=== PATIENT | male | born 1960 | race Caucasian/White ===

== ENCOUNTER → 2019-03-19 15:26 | Outpatient (CLI) | payer OTHER, SELFPAY ==
[2019-03-19 16:58] LABS: PSA,Total- Diagnostic 3.09 ng/mL (0.0-4.0)
== END ==
PROVIDERS: Family Provider Family Medicine; PCP Family Medicine; Referring Provider Nurse Practitioner Adult Health; Visit Provider Nurse Practitioner Adult Health
DX: R97.20 Elevated prostate specific antigen [PSA] (principal)
CPT/HCPCS: 36415; 84153

== ENCOUNTER 2021-11-08 08:30 | Outpatient (CLI) | payer OTHER, SELFPAY ==
--- NOTE | 2021-11-08 | IMM_PTH ---
PATIENT: TOM GELLER LOC: [facility] U#:[id number] AGE/SX: 61/M ROOM: RE11/08/[address]: Dr. Brennan Leonardo MD : 1960 BED: DIS: 11/08/2021 SPEC #: [id number] RECD: 11/10/21 14:13 STATUS: VIOLA REQ #: [id number] ZEE: 11/08/21 00:[address]: Brennan Leonardo DEPT: IMMUNOHISTOCHEMISTRY RECD BY: Cindi Anand ENTERED: 11/10/21 14:17 SP TYPE: IMMUNO OTHR DR: Dr. Pedro Doe MD Tissues: A - PROSTATE RIGHT B - PROSTATE RIGHT D - PROSTATE LEFT E - PROSTATE LEFT F - PROSTATE LEFT Procedures: 34BE12 (add) P40 (add) 34BE12 (initial) PHYSICIAN & INSTITUTION [place] [phone] SPECIMEN INFORMATION: Tissue Source: A - Right apex, B - Right mid, D - Left apex, E - Left mid, F - Left base Clinical Info: Elevated PSA Specimen Number: [id number] A, B, D-F CPT code: 88359, 25723 x9 METHODOLOGY: Deparaffinized sections of prefer/formalin-fixed tissue or PAP/DQ stained slides are incubated with monoclonal/polyclonal antibodies/oligonucleotide probes. Localization is made via biotin free immunoperoxidase method. Appropriate controls are performed and reacted as expected. Results on target cell population are indicated in the following table: RESULTS: ANTIBODY / CLONE RESULT Block A P40 (BC28) negative 34BE12 (34BE12) negative Block B P40 (BC28) negative 34BE12 (34BE12) negative Block D P40 (BC28) negative 34BE12 (34BE12) negative Block E P40 (BC28) negative * 34BE12 (34BE12) negative * Block F P40 (BC28) negative * 34BE12 (34BE12) negative * *?Positive in area of high-grade prostatic intraepithelial neoplasia (HGPIN). These tests were developed and their performance characteristics determined by [facility]. They may not have been cleared or approved by the U.S. Food and Drug Administration. The FDA has determined that such clearance or approval is not necessary. The above immunohistochemical/dualISH markers are ordered and reviewed by the Pathologist. INTERPRETATION: A. Right prostate, apex, core biopsy: Adenocarcinoma. B. Right prostate, mid, core biopsy: Adenocarcinoma. D. Left prostate, apex, core biopsy: Adenocarcinoma. E. Left prostate, mid, core biopsy: Adenocarcinoma. High-grade prostatic intraepithelial neoplasia (HGPIN). F. Left prostate, base, core biopsy: Adenocarcinoma. High-grade prostatic intraepithelial neoplasia (HGPIN). SJ:kesha 11/11/2021
--- NOTE | 2021-11-08 08:00 | PROSBIL_PTH ---
PATIENT: TOM GELLER LOC: [facility] U#:[id number] AGE/SX: 61/M ROOM: RE11/08/[address]: Dr. Brennan Leonardo MD : 1960 BED: DIS: 11/08/2021 SPEC #: [id number] RECD: 11/08/21 17:19 STATUS: VIOLA SIDDIQUI #: [id number] ZEE: 11/08/21 08:[address]: Brennan Leonardo DEPT: SURGICAL PATHOLOGY RECD BY: Radha Westfall ENTERED: 11/09/21 07:55 SP TYPE: PROST BX CARLEY DR: Dr. Pedro Doe MD Tissues: A - PROSTATE RIGHT B - PROSTATE RIGHT C - PROSTATE RIGHT D - PROSTATE LEFT E - PROSTATE LEFT F - PROSTATE LEFT Procedures: PROSTATE BX HEADER OPERATION: Prostate biopsy PRE-OP DIAGNOSIS: Elevated PSA TISSUE SUBMITTED: A - Right apex, B - Right mid, C - Right base, D - Left apex, E - Left mid, F - Left base MICROSCOPIC DIAGNOSIS A. Right prostate, apex, core biopsy: Prostatic adenocarcinoma. Moroni grade: 3+3=6 Number of cores involved: 1/1 Proportion of tissue involved: <5% Perineural invasion: Not identified. Greatest tumor length: <0.1 cm See comment. B. Right prostate, mid, core biopsy: Prostatic adenocarcinoma. Moroni grade: 3+3=6 Number of cores involved: 1/2 Proportion of tissue involved: 5-10% Perineural invasion: Not identified. Greatest tumor length: 2 mm See comment. C. Right prostate, base, core biopsy: Prostatic tissue, negative for malignancy. D. Left prostate, apex, core biopsy: Prostatic adenocarcinoma. Hamilton grade: 3+3=6 Number of cores involved: 1/1 Proportion of tissue involved: 10% Perineural invasion: Not identified. Greatest tumor length: 2 mm See comment. E. Left prostate, mid, core biopsy: Prostatic adenocarcinoma. Hamilton grade: 3+3=6 Number of cores involved: 1/1 Proportion of tissue involved: <5% Perineural invasion: Not identified. Greatest tumor length: <0.1 cm Focal high-grade prostatic intraepithelial neoplasia (HGPIN). See comment. F. Left prostate, base, core biopsy: ? Prostatic adenocarcinoma. Moroni grade: 3+3=6 Number of cores involved: 1/2 Proportion of tissue involved: <5% Perineural invasion: Not identified. Greatest tumor length: <0.1 cm Focal high-grade prostatic intraepithelial neoplasia (HGPIN). See comment. SJ:kesha 11/10/2021 COMMENT A, B, D-F - Immunohistochemistry ([id number]) supports the above diagnosis. Case has been reviewed in consultation with Dr. Alvares who concurs with the above diagnosis. IDC:AM MICROSCOPIC DESCRIPTION Slides are reviewed. GROSS DESCRIPTION A - Received is one container designated prostate, right apex. The specimen consists of one elongated fragment of light keen-white soft tissue measuring 1 cm in length and 0.1 cm in diameter. The specimen is totally submitted in one cassette. B - Received is one container designated prostate, right mid. The specimen consists of two elongated fragments of light keen-white soft tissue each measuring 1.5 cm in length and 0.1 cm in diameter. The specimen is totally submitted in one cassette. C - Received is one container designated prostate, right base. The specimen consists of two elongated fragments of light keen-white soft tissue each measuring 1 cm in length and 0.1 cm in diameter. The specimen is totally submitted in one cassette. D - Received is one container designated prostate, left apex. The specimen consists of one elongated fragment of light keen-white soft tissue measuring 1 cm in length and 0.1 cm in diameter. The specimen is totally submitted in one cassette. E - Received is one container designated prostate, left mid. The specimen consists of one elongated fragment of light keen-white soft tissue measuring 1 cm in length and 0.1 cm in diameter. The specimen is totally submitted in one cassette. F - Received is one container designated prostate, left base. The specimen consists of two elongated fragments of light keen-white soft tissue each measuring 1 cm in length and 0.1 cm in diameter. The specimen is totally submitted in one cassette. / AM:kesha 11/09/21 TC:0 [facility]: 46907 x6 ADDENDUM ADDENDUM ADDENDUM ADDENDUM ADDENDUM ADDENDUM ADDENDUM ADDENDUM 12/13/2021 08:38 ADDENDUM 12/13/2021 08:38 ADDENDUM 12/13/2021 08:38 ADDENDUM 12/13/2021 08:38 ADDENDUM 12/13/2021 08:38 An order for Oncotype testing was received from Dr. Leonardo. This necessitated case review, block and slide selection by pathologist at [facility]. Genomic Prostate Score = 24 Results of the complete Oncotype testing (LIFX report) are viewable in EMR under: Reports - Pathology - Lab Pathology Report, Scanned.
== END 2021-11-08 23:59 | disposition short-term general hospital (02) ==
LOC: LABSPEC 11-09 07:32
PROVIDERS: PCP Family Medicine; Referring Provider Urology; Visit Provider Urology
DX: R97.20 Elevated prostate specific antigen [PSA] (principal)
CPT/HCPCS: 88305; 88341; 88342; G0416

== ENCOUNTER → 2022-05-23 | Outpatient (CLI) | payer OTHER, SELFPAY ==
[2022-05-23 09:41] LABS: PSA,Total- Diagnostic 5.57 ng/mL (0.0-4.0)
== END | disposition home or self-care (01) ==
LOC: LAB 08:03
PROVIDERS: PCP Family Medicine; Referring Provider Urology; Visit Provider Urology
DX: C61 Malignant neoplasm of prostate (principal)
CPT/HCPCS: 36415; 84153

== ENCOUNTER 2022-08-23 10:35 | Observation (INO) | payer OTHER, SELFPAY ==
--- NOTE | 2022-08-18 09:15 | EKG12_ITS ---
Test Reason : PRE-OP Blood Pressure : / mmHG Vent. Rate : 074 BPM Atrial Rate : 074 BPM P-R Int : 134 ms QRS Dur : 078 ms QT Int : 368 ms P-R-T Axes : 076 075 059 degrees QTc Int : 408 ms Normal sinus rhythm Septal infarct , age undetermined Abnormal ECG Confirmed by CIRA ARMSTRONG, MILA ([id number]), graphic editor NELSON HERNANDEZ ([id number]) on 08/21/2022 9:44:55 A M Referred By: Brennan Leonardo Confirmed By:MARLEY DENIS MD
[2022-08-18 10:31] LABS: Hematocrit 45.3 % (40-54); Hemoglobin 15.7 g/dL (13.0-16.5); Mean Corp Hgb Conc 34.7 g/dL (32-36); Mean Corpuscular Hgb 32.4 pg (27.0-32.0); Mean Corpuscular Volume 93.4 fL (80-94); Mean Platelet Vol. 8.8 fl (6.2-12.0); Platelet Count 321 K/mm3 (150-450); RBC Distribution Width CV 12.4 % (11.6-14.6); RBC Distribution Width SD 42.7 fl (35.1-43.9); Red Blood Count 4.85 M/mm3 (4.6-6.2)
[2022-08-18 10:50] LABS: Partial Thromboplast Time 26.1 Seconds (24.1-36.2)
[2022-08-18 11:26] LABS: AST(SGOT) 18 U/L (15-37); Alanine Aminotransfer ALT/SGPT 34 U/L (16-61); Albumin, Serum 3.8 g/dL (3.2-5.0); Alkaline Phosphatase 69 U/L (45-117); Anion Gap 5 (5-15); BUN 13 mg/dL (7-18); Bilirubin, Direct 0.16 mg/dL (0.00-0.30); Calcium,Total 9.2 mg/dL (8.5-10.1); Chloride 105 mmol/L (98-107); Creatinine, Serum 0.87 mg/dL (0.70-1.30); EST Glomerular Filtration Rate 95 mL/min (>60); Est Glom Filt Rate - Afr Amer 115 mL/min (>60); Globulin 3.5 g/dL (2.2-4.2); Glucose 88 mg/dL (74-106); Potassium 3.8 mmol/L (3.5-5.1); Protein, Total 7.3 g/dL (6.4-8.2); Sodium Level 139 mmol/L (136-145)
[2022-08-23] VITALS (12 sets, daily range): BP systolic 107–137; BP diastolic 62–82; PULSE 4–94; RESP 16–18; TEMP 35.8–37.2; O2SAT 95–100; BMI 23.1
--- NOTE | 2022-08-23 | PROST_PTH ---
PATIENT: TOM GELLER LOC: [facility] U#:[id number] AGE/SX: 62/M ROOM: [facility]305 RE08/23/[address]: Dr. Brennan Leonardo MD : 1960 BED: 1 DIS: 08/24/2022 SPEC #: [id number] RECD: 08/23/22 12:58 STATUS: VIOLA RESuki #: [id number] ZEE: 08/23/22 00:[address]: Brennan Leonardo DEPT: SURGICAL PATHOLOGY RECD BY: Yuniel Chiang ENTERED: 08/23/22 13:00 SP TYPE: PROSTATE OTHR DR: MD Dr. Pedro Burnette MD Tissues: A - Lymph node of pelvis, NOS B - Lymph node of pelvis, NOS C - Adipose tissue D - Prostate, NOS Procedures: Surgery Specimen Level IV Surgery Specimen Level V Surgery Specimen Level HEADER OPERATION: Laparoscopic robotic radical prostatectomy with nerve sparing PRE-OP DIAGNOSIS: Malignant neoplasm of prostate, elevated PSA TISSUE SUBMITTED: A - Left pelvic lymph node, B - Right pelvic lymph node, C - Fat over prostate, D - Prostate MICROSCOPIC DIAGNOSIS A. Left pelvic lymph node, regional lymphadenectomy: One out of one lymph node negative for carcinoma. B. Right pelvic lymph nodes, regional lymphadenectomy: Three out of three lymph nodes negative for carcinoma. C. Fat over prostate, biopsy: Negative for carcinoma. D. Prostate, radical prostatectomy: Adenocarcinoma. See cancer synoptic report below. AM:kesha 08/25/2022 COMMENT PROSTATE CANCER (RADICAL) SUMMARY: Procedure: Radical Prostatectomy Prostate Size: Weight: 30.2 gm Size: 3.5 x 3.5 x 3.2 cm Histologic Type: Adenocarcinoma Histologic Grade: 6 (3+3) Percent of Pattern 4: 0 Percent of Pattern 5: 0 Intraductal Carcinoma: Not identified Tumor Quantitation: 2.9 x 1.7 x 1.1 cm Extraprostatic Extension: Not identified Urinary Bladder Neck Invasion: Not identified Seminal Vesicle Invasion: Not identified Lymphvascular Invasion: Not identified Perineural Invasion: Present, frequent Margins: Distal urethral margin is positive for invasive carcinoma. Regional Lymph Nodes: Number of lymph nodes involved by carcinoma: 0 Total number of lymph nodes examined: 4 (see specimens A & B) Treatment Effect: Unknown Additional Pathologic Findings: Focal high-grade prostatic intraepithelial neoplasia (HGPIN). PATHOLOGIC STAGE: T2 N0 Mx The above summary is in compliance with [employer] (CAP) Cancer Protocols Checklist and [place] Joint Committee on Cancer (AJCC), Staging Manual, 8th Ed. Reference is made to the patient's previous prostate, needle core biopsies ([id number]) in which prostate adenocarcinoma, [place] grade 6, was identified. MICROSCOPIC DESCRIPTION Slides are reviewed. GROSS DESCRIPTION A - Received in fixative is one container labeled with the patient's name and designated left pelvic lymph node. The specimen consists of an irregular fragment of yellow fatty tissue measuring 1.6 x 1 x 0.3 cm. The specimen is totally submitted in one cassette. B - Received in fixative is one container labeled with the patient's name and designated right pelvic lymph node. The specimen consists of multiple irregular fragments of yellow-keen fatty tissue measuring in aggregate 2.5 x 2 x 0.5 cm. The specimen is totally submitted in one cassette. C - Received in fixative is one container labeled with the patient's name and designated fat over prostate. The specimen consists of an irregular fragment of yellow fatty tissue measuring 2.5 x 1.5 x 0.3 cm. The specimen is totally submitted in one cassette. D - Received in fixative is one container labeled with the patient's name and designated prostate. The specimen consists of a radical prostatectomy specimen consisting of prostate and bilateral seminal vesicles. The specimen weighs 30.2 gm. The prostate measures 3.5 cm transversely, 3.2 cm anterior-posteriorly and 3.5 cm craniocaudally. The specimen is differentially inked as follows: entire posterior surface - black, anterior surface - red, right prostate and right seminal vesicles - blue and left prostate and left seminal vesicles - green. The gland is serially sectioned (3-4 mm). No mass lesions are appreciated. Stem Lead Former sections are submitted as follows: 1 - distal urethral shaved margin, 2 - bladder shaved margin, 3 - seminal vesicles, 4 - most distal portion of prostate, 5-7 - apex, 811 - mid portion of prostate, 12-15 - basal portion of prostate. / AM:kesha 08/24/2022 TC:0 CPT: 35965 x2, 75193, 75299
[2022-08-23] MEDS: Lactated Ringers 1,000 ML 15 ML IV (06:18)
[2022-08-23] MEDS: Cefazolin 2 GM in 0.9% Normal Saline 100 ML IV (07:25)
[2022-08-23] MEDS: Lactated Ringers 1,000 ML 75 ML IV ×2 (10:35→21:40)
--- NOTE | 2022-08-23 10:36 | DCINST_ITS ---
Discharge Instructions Diet Discharge Diet: No restrictions, Light diet - advance as tolerated and Soft diet Activity Discharge Activity: May Not Drive and May Shower Dressing / Incision Catheter: Chapman to leg bag and Chapman to large bag Drain: [place] Follow Up Care Please Follow Up With: Brennan Leonardo MD When: 2 weeks Test Results: Test results from this visit will be discussed in further detail at your follow- up appointment, if applicable. Discharge Plan Admission Primary Reason for Your Visit: Radical prostatectomy Attending Provider: Brennan Leonardo Primary Care Provider: Pedro Doe Consulting Providers: Jack Cool Instructions Patient Instructions: Radical Prostatectomy Dc Discharge Orders/Prescriptions Prescriptions: New ciprofloxacin HCl [Cipro] 500 mg tablet 500 mg PO DAILY Qty: 14 0RF docusate sodium [Colace] 100 mg capsule 100 mg PO BID Qty: 20 0RF oxycodone-acetaminophen 5-325 mg tablet 1 tab PO Q6H PRN (Reason: pain) 7 Days Qty: 14 0RF Continued hyoscyamine sulfate 0.375 mg Capsule,Extended Release 12 Hr 0.375 mg PO BID losartan 100 mg Tablet 100 mg PO BID Referrals / Follow Up: Pedro Doe MD [Primary Care Provider] - Brennan Leonardo MD [Med Staff - Active Staff] - Disposition Disposition (needs filled in before D/C Order can be placed): Home, Self Care
--- NOTE | 2022-08-23 10:36 | PCM.HP.STD ---
HPI - General HPI Narrative TOM GELLER, is a 62 M who presents for radical prostatectomy for prostate cancer PFSH Medical History (Updated 08/23/22 @ 10:[address] Brennan Leonardo MD) Alcohol use Arthritis Cancer Heartburn History of echocardiogram History of IBS Hypertension Injury of head and neck Leg cramps Marijuana use Prostate disease Smoker Wears glasses Home Medications hyoscyamine sulfate 0.375 mg capsule,extended release 12 hr 0.375 mg PO BID 08/16/22 [History Last Taken Unknown] losartan 100 mg tablet 100 mg PO BID 08/16/22 [History Last Taken Unknown] ciprofloxacin HCl 500 mg tablet (Cipro) 500 mg PO DAILY #14 tabs 08/23/22 [Rx Last Taken Unknown] docusate sodium 100 mg capsule (Colace) 100 mg PO BID #20 caps 08/23/22 [Rx Last Taken Unknown] oxycodone-acetaminophen 5 mg-325 mg tablet 1 tab PO Q6H PRN pain 7 days #14 tabs 08/23/22 [Rx Last Taken Unknown] Allergy/AdvReac Type Severity Reaction Status Date / Time hydrochlorothiazide Allergy Rash Verified 08/23/22 06:07 lisinopril AdvReac Mild Other Verified 08/23/22 06:07 losartan potassium AdvReac Mild Other Verified 08/23/22 06:07 [From Anastacio] Surgical History (Updated 08/16/22 @ 09:20 by Carolina Collins) Hx of colonoscopy Hx of wisdom tooth extraction Social History Smoking Status: Current every day smoker tobacco type: cigarettes Vital Signs Vital Signs Vital Signs: 08/23/22 06:11 08/23/22 06:15 Temperature 97.3 F L Temperature Source Temporal Pulse Rate 69 Respiratory Rate 16 Respiratory Pattern Normal Blood Pressure 137/76 H Blood Pressure Mean 96 Blood Pressure Source Monitor Blood Pressure Position Semi-Fowlers Blood Pressure Location Right Arm Pulse Ox 98 Oxygen Delivery Method Room Air Weight Weight: 67 kg Body Mass Index (BMI) 23.1 Results Lab / Micro Data Result Diagrams: 08/18/22 09:38 08/18/22 09:38
--- NOTE | 2022-08-23 10:37 | PCM.OPRPT ---
Report of Operation Date of Procedure: 08/23/22 Pre-Operative Diagnosis: Prostate cancer Post-Operative Diagnosis: Same Surgery/Procedure Performed:: Laparoscopic robotic assisted radical prostatectomy with bilateral nerve sparing and pelvic lymph node dissection Description of Surgical Findings:: Patient presented to the hospital for treatment of his prostate cancer with radical prostatectomy. In the preoperative setting we discussed the options of management for his prostate cancer including active surveillance, radiation treatments, radioactive seeds, and radical robotic prostatectomy. We discussed the side effects of surgery including the potential to lose erections. We discussed the potential to have bladder control problems with stress incontinence which can be temporary or permanent. We discussed the risk of the surgery including the risk of general anesthetic, risk of bleeding, risk of infection, and risk of formation of hernia either incisional hernia or inguinal hernia. After long discussion with the patient the preoperative setting and also reviewed this in the preop area patient signed the consent form and we proceeded with a radical prostatectomy. Patient was taken back to the operating room he was identified, time out procedure was performed and he was placed supine on the table he underwent general anesthesia with intubation. The abdomen was shaved prepped and draped in usual sterile fashion as well as the penis and testicles. A 16 Barbadian catheter was placed into the bladder with clear return of urine. I then made an incision in the umbilicus and dissected down to the fascia advance a Veress needle into the peritoneal cavity and insufflated the peritoneal cavity with CO2 gas. I then placed a 12 mm trocar above the umbilicus. I then visualized the placement of the rest of the trochars, I placed a right arm robotic trocar, and air seal trocar, a suction port 5 mm trocar. And on the left side I placed 2 robotic arms. Once all the trochars were in placed the patient was put in steep Trendelenburg. And the robot was docked the arms were docked and then I placed the 0 degree camera through the robotic arm and also used a 30 degree camera during certain parts of the case. I used scissors in the right arm, prograsp in the third arm, and a bipolar in the second arm. Initial dissection was to free the sigmoid colon off the lateral wall this was done by meticulously dissecting off the peritoneum and the sigmoid colon off the left lateral wall. This then allowed the prograsp to retract the sigmoid colon out of the pelvis. I then went below the bladder and identified the vas deferens incised the peritoneum over the vas deferens and traced the vas deferens below the bladder to the prostate and identified the right and left vasa deferens. Below behind the vas deferens then the seminal vesicles were identified. I then dissected the seminal vesicle free using pinpoint electrocautery and then we identified the other seminal vesicle and then dissected this using pinpoint electrocautery I then elevated the vas deferens and several vesicles off the prostate and was able to sweep the Denonvilliers' fascia off the prostate posteriorly all the way up to the apex of the prostate. Working laterally I made sure I went as lateral as possible to sweep the Denonilliers' fascia off the posterior aspect of the prostate and worked my way back, I then transected the vas deferens and the left and right side the seminal vesicles were then dissected free. And then I pulled out of the pelvis. At this point the bladder was dropped creating the space of Retzius with the bladder on traction with the fourth arm. Using electrocautery I dissected in the anterior peritoneal fascia and then created the space of Retzius dissecting towards the prostate. The pelvic lymph node dissection was then performed both on the left and the right pelvic lymph nodes the nodes that were taken on the right side extended from the right iliac artery lateral pelvic sidewall up to the junction of the artery and the lymph nodes and down to the obturator nerve and then also below the scrap crane operator nerve all the lymph nodes were removed during to remove those lymph nodes we used clips and electrocautery to control small blood vessels and also the control lymphatic. I then went to the left side and again did an extensive lymph node dissection starting of the left iliac artery extending the left iliac vein on the lateral sidewall down to the obturator nerve and the left side beyond the scrap crane operator nerve down further behind it cleaning out all the lymphatic tissue all this tissue was sent off as a specimen we use clips and electrocautery during the dissection. At the end we cleaned out all the lymphatic tissue on the right pelvic wall and no lymphatic tissue in the left pelvic wall. The prostate was then cleaned of the fat over the prostate and the fourth arm was used to retract the bladder and place traction. I then identified the endopelvic fascia that was overlying the prostate on the right side I incised endopelvic fascia and wwept the levator muscles off the prostate all the way to the apex on the right side, I then worked my way anterior to the prostate then transected to the puboprostatic ligament and the underlying dorsal vein complex was not injured. I then went to the other side and identified the endopelvic fascia in the left side incised in a fashion the left side and swept the levator muscles off the prostate on the left side all the way up to the apex the puboprostatic ligament on the left side was then dissected and transected I then freed up the fascia overlying the dorsal vein complex. I then used the prograsp to encircled the dorsal vein complex with the prograsp and then switched over to the right and left needle wrecking car driver and suture ligated the dorsal vein complex above the prograsp. The prograsp was then placed back in the bladder and put back on traction I then identified the junction between the bladder and the prostate and dissected down between the bladder and the prostate untilI came across the catheter we then dissected posteriorly to the bladder and prostate to free the prostate and the bladder off each other and the muscles between the bladder and the prostate was then cauterized to free up the bladder. I then went on top of the prostate and identified the endopelvic fascia on top of the prostate this was incised all the way to the apex and then we swept the endopelvic fascia off the prostate laterally and then identified the plane between endopelvic fascia and the prosthetic pseudocapsule and swept the fascia laterally until reaching the course of the neurovascular bundles and then released the neurovascular bundles off the prostate laterally all the way back in a retrograde fashion back to the junction of the pedicles then the prostate was placed on traction with the fourth arm pulling the prostate laterally identified the pedicle to the prostate between the seminal vesicles and the and the neurovascular bundle and this was taken using sequential small hemolocks. After the pedicle was taken the I then dissected underneath the prostate sweeping the neurovascular bundle off the prostate we able to follow the nice smooth plane between the neurovascular bundle and the pseudocapsule all the way to the apex once this was identified we swept this up all the way up to the apex and there was perfect nerve sparing on the right side. Then went to the left side the prostate identified the endopelvic fascia over the left side of the prostate I incised the endopelvic fascia all the way to the apex and then swept this off laterally I then released the neurovascular bundles on the left side of the prostate sweeping him off the prostate laterally I then elevated the prostate up up with the prostate and traction identified the pedicle to the prostate on the left side and then the pedicles taken with sequential Hem-o-jorge clips I then was able to dissected the neurovascular bundle off the left posterior aspect the prostate this was a perfect dissection all the way up on the left side following the pseudocapsule all the way up the left side until we reached the apex of the prostate. After the both the neurovascular bundles has been swept off the posterior to the prostate I then went above and transected the dorsal vein complex there was minimal to no bleeding but then dissected down to the urethra and circumfencial dissected around the urethra I then switched the right and left arm with the needle drivers and I suture-ligated the dorsal vein complex again just to ensure that there was no bleeding from the dorsal vein complex. I then transected through the urethra with scissors and the prostate was then freed and released off the prostate bed and put an Endo Catch bag. At this point the bladder neck was reconstructed and then an anastomosis was performed between the prostate and the bladder with a 3 oh V-Loc stitch in a running fashion starting from the bladder neck at the 6 o'clock position working to the 12 o'clock position with continuous stitches to complete a perfect anastomosis between the bladder and the prostate. I then placed a new catheter into the bladder, an 18 Barbadian los coyotes tip catheter flushed the bladder and there was no leakage from the anastomosis I put 10 cc in the balloon and pulled it up pulled back gently. I then ensured that there was no bleeding from the dorsal vein complex no bleeding from the neurovascular bundles FloSeal was placed as necessary once hemostasis was ensured and adequate then I placed the bladder back in position in the pelvis the prostate was exchanged to the camera port I closed the air seal port with a 10 12 David Martinez stitch. And the extracted the prostate through the umbilicus. The robot was undocked all the ports were removed under direct visualization then closed the extraction site with 0 Vicryl with a CT1 needle once the extraction site was closed. I then closed all the incision with subcuticular stitches with 4-0 Monocryl and then bandages were placed on the incisions catheter was flushed to make sure it was draining well there was no clots and it was crystal clear patient's anesthetic was reversed he was extubated and taken back to the PACU in stable condition all the needles and sponges and instruments were accounted for. Blood loss was minimal and the drain was a 18 Barbadian Rojo catheter. No other surgical drain was left. I was present during the entire case. Type of Anesthesia: General Drains: 18 fr councel tip rojo Admit VTE Documentation VTE Present on Admission: No VTE Mechan Device Prophylaxis: SCD's VTE Pharm Prophylaxis ordered?: No
[2022-08-23] MEDS: Ciprofloxacin 400 MG/200 ML BAG 200 MG IV (15:49)
[2022-08-23] MEDS: Losartan Potassium 100 MG Tablet PO (21:40)
[2022-08-24 02:23] VITALS: BP 128/74; PULSE 75; RESP 15; TEMP 37; O2SAT 96
[2022-08-24] MEDS: Ciprofloxacin 400 MG/200 ML BAG 200 MG IV (02:29)
--- NOTE | 2022-08-24 07:24 | PCM.PN.GU ---
Subjective Subjective Status post radical prostatectomy yesterday did really well overnight no issues or problems he can go home today with a catheter to leg bag into a large bag. Follow-up in 2 weeks to remove the catheter instructions are given. Objective Data Objective Data Vital Signs: Vital Signs Temp Pulse Resp BP Pulse Ox O2 Del Method 98.6 F 75 15 128/74 H 96 Room Air 08/24/22 02:23 08/24/22 02:23 08/24/22 02:23 08/24/22 02:23 08/24/22 02:23 08/24/22 02:23 Oxygen Delivery Method Room Air Weight: 67 kg Body Mass Index (BMI) 23.1 Intake & Output: Intake and Output for Last 24 Hours 08/22/22 08/23/22 08/24/22 23:59 23:59 23:59 Intake Total 3769.50 / 4269.50 1500 / 1500 Output Total 900 / 1850 2450 / 2450 Balance 2869.50 / 2419.50 -950 / -950 Lab / Micro Data Result Diagrams: 08/18/22 09:38 08/18/22 09:38
[2022-08-24 08:00] VITALS: BP 117/66; PULSE 82; RESP 18; TEMP 36.6; O2SAT 97
[2022-08-24 08:30] VITALS: BP 117/66; PULSE 82; RESP 18; TEMP 36.6; O2SAT 97
[2022-08-24] MEDS: Acetaminophen 325 MG Tablet PO (09:09)
[2022-08-24] MEDS: Losartan Potassium 100 MG Tablet PO (09:10)
== END 2022-08-24 10:25 | disposition home or self-care (01) ==
LOC: MS3 08-24 07:22
PROVIDERS: Anesthesiology; Admitting Provider Urology; PCP Family Medicine; Referring Provider Urology; Visit Provider Urology
PROC: 0VT04ZZ Resection of Prostate, Percutaneous Endoscopic Approach (ICD-10-PCS; CPT 55866; principal; 2022-08-23 07:10)
DX: C61 Malignant neoplasm of prostate (principal); F17.210 Nicotine dependence, cigarettes, uncomplicated; I10 Essential (primary) hypertension; E78.5 Hyperlipidemia, unspecified; K21.9 Gastro-esophageal reflux disease without esophagitis; Z79.899 Other long term (current) drug therapy; M19.90 Unspecified osteoarthritis, unspecified site
CPT/HCPCS: 55866; 00865; 36415; 80048; 80076; 85027; 85610; 85730; 86850; 86900; 86901; 88304; 88305; 88307; 88309; 93005; 96361; 96365; 96366; 99218; 99251; 99252; 99406; J7120; G0378; G0463; J0744; J2405; J3490

== ENCOUNTER 2023-08-09 09:05 | Day surgery (SDC) | payer OTHER, SELFPAY ==
[2023-08-06 11:29] LABS: Hematocrit 45.9 % (40-54); Hemoglobin 15.7 g/dL (13.0-16.5); Mean Corp Hgb Conc 34.2 g/dL (32-36); Mean Corpuscular Hgb 31.8 pg (27.0-32.0); Mean Corpuscular Volume 93.1 fL (80-94); Mean Platelet Vol. 8.7 fl (6.2-12.0); Platelet Count 298 K/mm3 (150-450); RBC Distribution Width CV 12.4 % (11.6-14.6); RBC Distribution Width SD 43.1 fl (35.1-43.9); Red Blood Count 4.93 M/mm3 (4.6-6.2); White Blood Count 8.9 K/mm3 (4.4-11.0)
[2023-08-09 09:33] VITALS: BP 145/74; PULSE 65; RESP 16; TEMP 36.6; O2SAT 100; BMI 23.1
[2023-08-09] MEDS: Lactated Ringers 1,000 ML 15 ML IV ×2 (09:49→12:13)
--- NOTE | 2023-08-09 10:20 | HP.PCM_ITS ---
History and Physical Date of Admission: 08/09/23 Intake Vital Signs 08/23/2212:50 07/13/2313:47 Height 5 ft 7 in 5 ft 7 in Weight: 152 lb BMI 23.8 BP 143/81 H Blood Pressure Location Rt brachial Position Sitting Respiration 17 Pulse 76 Pulse Source Monitor Temp 97.5 F L Temp Source Temporal Pulse Oximetry (%) 97 Oxygen Delivery Method room air Intake Visit Reasons: R INGUINAL HERNIA Chief Complaint: right inguinal hernia Is patient in pain?: No Allergies hydrochlorothiazide Allergy (Verified 07/13/23 13:48) Rashlisinopril Adverse Reaction (Mild, Verified 07/13/23 13:48) Otherlosartan potassium [From Cozaar] Adverse Reaction (Mild, Verified 07/13/23 13:48) Other Medications hyoscyamine sulfate 0.375 mg capsule,extended release 12 hr 0.375 mg PO BID 08/16/22 [History Confirmed 07/13/23] losartan 100 mg tablet 100 mg PO BID 08/16/22 [History Confirmed 07/13/23] PFSH Medical History (Updated 07/13/23 @ 13:46 by Tracey White) Alcohol use Arthritis Cancer Heartburn History of echocardiogram History of IBS Hypertension Injury of head and neck Leg cramps Marijuana use Prostate disease Smoker Wears glasses Surgical History (Updated 07/13/23 @ 13:46 by Tracey White) H/O prostatectomy Hx of colonoscopy Hx of wisdom tooth extraction Family History (Updated 07/13/23 @ 13:47 by Tracey White) Mother Breast cancer CVA (cerebral vascular accident) Social History (Updated 07/13/23 @ 13:47 by Tracey White) Smoking Status: Current every day smoker tobacco type: cigarettes alcohol intake: never substance use type: does not use HPI HPI HPI: Patient is a 62-year-old male here for right inguinal hernia. The patient notes this has been there for around a month. He is having bulging in the right groin but no bulging or pain in the left. He has had a history of prostatectomy robotically. He denies any nausea or vomiting. ROS General General: No weight change, appetite, fatigue, colon cancer, breast cancer or weakness HEENT HEENT: No difficulty swallowing, eye injury, eye surgery, swollen glands or hoarseness Endo Endocrine: No thyroid disease, diabetes mellitus, thyroid cancer, Hair loss, heat intolerance or cold intolerance Skin Skin: No rash or changing moles Musc Musculoskeletal: Yes arthritis; No back problems, rheumatoid arthritis, gout or joint pain Cardio Cardiovascular: Yes high blood pressure; No murmur, pacemaker, heart disease, atrial fibrillation, heart attack, heart stent, palpitations, shortness of breat with exertion or chest pain Psych Psychiatric: No depression, anxiety or hearing voices Resp Respiratory: No shortness of breath, No sleep apnea, No cough, No COPD, No asthma, No emphysema and No wheezing Gastro Gastrointestinal: No abdominal pain, No nausea or vomiting, Yes diarrhea, No constipation, No blood in stool, Yes acid reflux, No hemorrhoids, No ulcers, No gallbladder problem and No black,tarry stools Cheikh Hematologic: No blood thinners, No blood disorders, No bleeding, No anemia and No blood clots Neuro Neurologic: No system reviewed and no additional complaints, except as documented, No as per HPI, No abnormal gait, No abnormal hearing, No abnormal movements, No abnormal speech, No behavioral changes, No burning sensations, No confusion, No convulsions, No disequilibrium, No dizziness, No localized weakness, No frequent falls, No headache(s), No lack of coordination, No loss of vision, No memory loss, Yes numbness, No other visual disturbances, No radicular pain, No restless legs, No sensory deficit, No syncope, Yes tingling, No tremor(s), No weakness and No other Exam Const General: cooperative Orientation: alert and oriented x3 [facility] Head: normal to inspection Neck Neck: normal visual inspection and full ROM Chest Chest palpation & inspection: normal inspection of the chest Resp Effort & Inspection: normal respiratory effort Auscultation: clear to auscultation bilaterally Cardio Rate: regular rate Rhythm: regular rhythm GI Inspection: non-distended Palpation: soft and nontender Skin General: no rashes or lesions noted Neuro General: patient alert and patient oriented x3 Extrem General: full ROM Psych Appearance: grossly normal Mental Status: mental status grossly normal Assessment and Plan Assessment and Plan (1) Right inguinal hernia: Status: Acute Plan: Patient has a right inguinal hernia which is reducible. I was unable to palpate a hernia on the left. I discussed open right inguinal hernia repair with mesh. I believe the hernia should be repaired from the outside as the patient has had robotic prostatectomy in the past and the planes are likely fused posteriorly. I discussed the risks of bleeding, infection, injury to organs and the spermatic cord, injury to bowel or bladder. I also discussed mesh placement in detail as well as the risks of chronic groin pain or nerve injury. Patient understands the risks and is willing to proceed. Zhang Mota MD Pager: [facility] [address] [place] [address], [address] [place] [address] Office: I have examined the patient and the H&P has been reviewed. There are no clinical changes since date of exam.
--- NOTE | 2023-08-09 10:40 | HERN_PTH ---
PATIENT: TOM GELLER LOC: [facility] U#:[id number] AGE/SX: 63/M ROOM: RE08/09/[address]: Dr. Zhang Mota MD : 1960 BED: DIS: 08/09/2023 SPEC #: [id number] RECD: 08/09/23 13:46 STATUS: VIOLA SIDDIQUI #: [id number] ZEE: 08/09/23 10:[address]: Zhang Mota DEPT: SURGICAL PATHOLOGY RECD BY: Radha Westfall ENTERED: 08/10/23 07:33 SP TYPE: Hernia OTHR DR: Dr. Pedro Doe MD Tissues: HERNIA Procedures: Surgery Specimen Level II HEADER OPERATION: Open right hernia, inguinal with mesh PRE-OP DIAGNOSIS: Open right hernia, inguinal with mesh TISSUE SUBMITTED: Right inguinal hernia sac MICROSCOPIC DIAGNOSIS Right inguinal hernia sac, herniorrhaphy: Fibrosis, vascular ectasia and minimal chronic inflammation. AM:kesha 08/13/2023 MICROSCOPIC DESCRIPTION Slides are reviewed. GROSS DESCRIPTION Received in fixative is one container labeled with the patient's name and designated right inguinal hernia sac. The specimen consists of an irregular piece of keen-pink soft tissue measuring 4.5 x 1.5 x 0.5 cm. No mass lesion is identified. [employer] sections are submitted in one cassette. / SJ:kesha 08/10/2023 TC:5 CPT: 63363
[2023-08-09] MEDS: Cefazolin 2 GM in 0.9% Normal Saline (100mL Bag) 100 ML IV (10:59)
[2023-08-09] MEDS: Bupivacaine 0.25% 30 ML Vial (11:09)
[2023-08-09 12:05] VITALS: BP 117/97; BP 145/74; PULSE 73; RESP 18; TEMP 36.1; O2SAT 97
[2023-08-09 12:15] VITALS: BP 127/75; BP 145/74; PULSE 67; RESP 16; O2SAT 99
--- NOTE | 2023-08-09 12:21 | OP.PCM_ITS ---
Problems Associated Problem List Diagnoses (1) Right inguinal hernia: Report of Operation Date of Procedure: 08/09/23 Pre-Operative Diagnosis: Right inguinal hernia Post-Operative Diagnosis: Right inguinal hernia Surgery/Procedure Performed:: Right inguinal hernia repair with mesh Type of Anesthesia: General/Regional Specimen's removed: Inguinal hernia sac Estimated Blood Loss (mL): 10 Description of Procedure: Patient was brought back to the operating room and general anesthesia was induced. The right groin and lower abdomen were prepped and draped in usual sterile fashion. An incision was marked and then injected with local anesthetic. Scalpel was used to make an incision and deepened it down to the external aponeurosis. The external aponeurosis was opened with a scalpel and the edges were raised with hemostats. Scissors were used to open the external aponeurosis to the external ring. There was a lot of adhesions and tight scar tissue in the inguinal region. The hernia sac was identified and opened sharply. The contents were reduced and the hernia sac was dissected free circumferentially. It was closed with running 3-0 Vicryl suture. After the hernia sac was reduced the spermatic cord was encircled with a [place] drain and elevated. The keyholed mesh was then tacked to the pubic tubercle using 2-0 PDS suture. It was tacked the shelving portion of the inguinal ligament as well as the conjoined tendon with interrupted 2-0 PDS sutures. The tails were wrapped around the spermatic cord and sutured together. There was enough room to slip the pinky finger adjacent to the spermatic cord. The tails were tucked under the external aponeurosis and the area was irrigated and suctioned dry and there was good hemostasis. The external aponeurosis was closed in a running fashion from the lateral to medial using 3-0 Vicryl suture. Neo's fascia was closed with interrupted 3-0 Vicryl sutures. The skin incision was injected with local anesthetic once more and closed with running 4-0 Monocryl suture and Dermabond glue was applied. The scrotum was checked at the end the case and contain both testicles and patient was awoken and taken to PACU in stable condition. Grafts/Implants Used: Keyhole mesh by Bard Admit VTE Documentation VTE Mechan Device Prophylaxis: SCD's
[2023-08-09 12:26] VITALS: BP 145/74; BP 146/76; PULSE 68; RESP 16; TEMP 36.8; O2SAT 100
--- NOTE | 2023-08-09 12:28 | DCINST_ITS ---
Discharge Instructions Procedure Hernia Diet Discharge Diet: Light diet - advance as tolerated Activity Discharge Activity: May Not Drive (for 2-3 days or while taking narcotic pain meds.) and May Shower (with the bandage in place 1-2 days after surgery.) Lifting Restrictions: 20 pounds for 6 weeks. Additional Activity Instructions:: Climbing stairs is fine, walking is encouraged. Sitting in bed may be uncomfortable. Sitting up using your lateral muscles (sitting up sideways) is usually more comfortable. Do not drive, work heavy equipment of sign legal documents for 24 hours. If your hernia repair was an ingunial repair, you may have scrotal swelling, an ice pack and/or athletic support can provide more comfort. Pain medications may cause nausea, you should typically eat light foods as you take your pain medications. Pain medications may also cause constipation. If you have difficulty with this, discuss with your doctor. Dressing / Incision Call your doctor if your incision/area has: Continuous Slow Oozing, Sudden Increased Bleeding, Increased Pain/ Swelling, Increased Redness and Foul Smelling Discharge Call your doctor if you observe: Fever of 101 or Higher Suture Line Care: Avoid Pulling/Pushing and Avoid Pinching/Bending Cleanse incision/area with: Soap & Water Follow Up Care Please Follow Up With: Zhang Mota MD When: Please call to schedule 2 week follow up appointment. [phone] Test Results: Test results from this visit will be discussed in further detail at your follow- up appointment, if applicable. Discharge Plan Admission Attending Provider: Zhang Mota Primary Care Provider: Pedro Doe Instructions Additional Instructions / Restrictions: Ibuprofen and Tylenol alternating for pain, oxycodone for breakthrough Discharge Orders/Prescriptions Prescriptions: New oxycodone 5 mg tablet 5 - 10 mg PO Q6H PRN (Reason: pain) 5 Days Qty: 20 0RF No Action hyoscyamine sulfate 0.375 mg Capsule,Extended Release 12 Hr 0.375 mg PO BID losartan 100 mg Tablet 100 mg PO BID Centrum Silver Men [id number] mcg tablet 1 tab PO DAILY Referrals / Follow Up: Pedro Doe MD [Primary Care Provider] - Disposition Disposition (needs filled in before D/C Order can be placed): Home, Self Care
[2023-08-09] MEDS: Acetaminophen 325 MG Tablet 650 MG PO (12:52)
[2023-08-09 13:38] VITALS: BP 145/74
== END 2023-08-09 13:38 | disposition home or self-care (01) ==
LOC: SDC 09:14 → AC 09:17
PROVIDERS: Anesthesiology; PCP Family Medicine; Referring Provider Surgery; Visit Provider Surgery
PROC: (CPT 49505; principal; 2023-08-09 10:25)
DX: K40.90 Unilateral inguinal hernia, without obstruction or gangrene, not specified as recurrent (principal); I10 Essential (primary) hypertension; F17.210 Nicotine dependence, cigarettes, uncomplicated
CPT/HCPCS: 49505; 00830; 36415; 85027; 88302; J7120; C1781; J2405

== ENCOUNTER 2023-12-04 10:47 | Observation (INO) | payer OTHER, SELFPAY ==
[2023-11-20 11:24] LABS: Absolute Lymphocyte Count 2.54 X10^3/uL (0.83-4.51); Absolute Neutrophil Count 3.7 X10^3/uL (2.0-7.7); Basophil# 0.05 X10^3/uL; Basophil% 0.7 % (0-1); Eosinophil# 0.23 X10^3/uL; Eosinophils% 3.2 % (0-5); Hematocrit 45.5 % (40-54); Lymphocyte # 2.54 X10^3/ul (0.83-4.51); Lymphocyte % 35.4 % (19-41); Mean Corp Hgb Conc 35.2 g/dL (32-36); Mean Corpuscular Hgb 32.5 pg (27.0-32.0); Mean Corpuscular Volume 92.5 fL (80-94); Mean Platelet Vol. 8.4 fl (6.2-12.0); Monocyte# 0.59 X10^3/uL; Monocyte% 8.2 % (0-10); NRBC Flagged by Analyzer 0 % (0-5); Neutrophil # 3.74 X10^3/uL (2.7-7.7); Neutrophil % 52.2 % (47-70); Platelet Count 328 K/mm3 (150-450); RBC Distribution Width CV 12.5 % (11.6-14.6); RBC Distribution Width SD 42.5 fl (35.1-43.9); Red Blood Count 4.92 M/mm3 (4.6-6.2); White Blood Count 7.2 K/mm3 (4.4-11.0)
[2023-11-20 11:52] LABS: Magnesium 2.4 mg/dL (1.6-2.6)
[2023-11-20 11:54] LABS: Anion Gap 7 (5-15); BUN 12 mg/dL (7-18); BUN/Creat Ratio 13.3 RATIO (10-20); Calcium,Total 9.1 mg/dL (8.5-10.1); Chloride 107 mmol/L (98-107); EST Glomerular Filtration Rate 91 mL/min (>60); Est Glom Filt Rate - Afr Amer 110 mL/min (>60); Glucose 96 mg/dL (74-106); Potassium 3.6 mmol/L (3.5-5.1); Sodium Level 140 mmol/L (136-145)
[2023-11-20 12:35] LABS: HIV - WCH Non-Reactive (Nonreactive); Hepatitis B Surface Antibody Non-Reactive; Hepatitis C Antibody Non-Reactive (Nonreactive)
--- NOTE | 2023-11-20 13:05 | EKG12_ITS ---
Test Reason : PRE OP Blood Pressure : / mmHG Vent. Rate : 071 BPM Atrial Rate : 071 BPM P-R Int : 138 ms QRS Dur : 080 ms QT Int : 394 ms P-R-T Axes : 081 087 060 degrees QTc Int : 428 ms Normal sinus rhythm Nonspecific ST abnormality Abnormal ECG Confirmed by JARVIS ARMSTRONG, BREANNA ([id number]), social media editor NELSON HERNANDEZ ([id number]) on 11/20/2023 1:06:43 PM Referred By: Oniel Tinajero Confirmed By:BREANNA CONLEY MD
[2023-11-21 05:08] LABS: Hepatitis A AB, Total Negative (Negative)
[2023-12-04] VITALS (20 sets, daily range): BP systolic 53–156; BP diastolic 43–93; PULSE 35–96; RESP 16–18; TEMP 36.2–37; O2SAT 97–100; BMI 24.1
--- OUTSIDE RECORDS SUMMARY | 2023-12-04 05:44 | XMS RPT_ITS | CCD ---
Author Name Unknown Address [id number] [place] [address] Organization [facility] Care Team Providers Care Casino Assistant Manager Name Role Phone Didi Zimmer MD Primary Care Provider DIDI ZIMMER Attending Unavailable DIDI ZIMMER Primary Care Unavailable PARAMJIT CARLIN Referring Unavailable DIDI ZIMMER Primary Care Unavailable JORGE FAYE Referring Unavailable DIDI ZIMMER Primary Care Unavailable JORGE FAYE Referring Unavailable DIDI ZIMMER Primary Care Unavailable DIDI ZIMMER Attending Unavailable DIDI ZIMMER Primary Care Unavailable PARAMJIT CARLIN Attending Unavailable DIDI ZIMMER Primary Care Unavailable Allergies Allergy Classification Reported Allergen(s) Allergy Type Date of Onset Reaction(s) Facility (18 sources) Clotrimazole; Translations: [CLOTRIMAZOLE] Drug Allergy 11-23-2016 [facility] Work Phone: (18 sources) Lisinopril; Translations: [LISINOPRIL] Drug Allergy 10-31-2006 [facility] Work Phone: (18 sources) Losartan; Translations: [LOSARTAN POTASSIUM] Drug Allergy 10-11-2012 [facility] Work Phone: (5 sources) Thiazides; Translations: [THIAZIDES] Drug Allergy 08-30-2006 [facility] Work Phone: (13 sources) Thiazides Drug Allergy 08-30-2006 [facility] Work Phone: Medications Current Medications Medication Drug Class(es) Dates Sig (Normalized) Sig (Original) 12 hr hyoscyamine sulfate 0.375 mg extended release oral tablet (20 sources) Start: 04-13-2022 End: 04-08-2024 take 1 tablet by mouth twice daily hyoscyamine SR (LEVBID) 0.375 mg 12 hr tablet Indications: Irritable bowel syndrome with diarrhea Take 1 tablet by mouth twice daily. 180 tablet 1 04/27/2023 10/24/2023 Active Completed/Discontinued Medications Medication Drug Class(es) Dates Sig (Normalized) Sig (Original) atenolol 25 mg oral tablet (4 sources) beta-Adrenergic Hailey Start: 04-05-2021 End: 04-18-2022 take 1 tablet by mouth once daily atenolol (TENORMIN) 25 mg tablet Take 1 tablet by mouth once daily. 30 tablet 5 04/05/2021 04/18/2022 Discontinued Problems Active Problems Problem Classification Problem Date Documented Da te Episodic/Chronic Abdominal hernia (1 source) Right inguinal hernia ; Translations: [Unilateral inguinal hernia, without obstruction or gangrene, not specified as recurrent] 07-02-2023 Episodic Cancer of prostate (20 sources) Malignant tumor of prostate; Translations: [Malignant neoplasm of prostate] Onset: 2 11-18-2021 Chronic Disorders of lipid metabolism (20 sources) Mixed hyperlipidemia; Translations: [Mixed hyperlipidemia] Onset: 6 11-22-2016 Chronic Esophageal disorders (19 sources) Gastroesophageal reflux disease without esophagitis; Translations: [Gastro-esophageal reflux disease without esophagitis] Onset: 7 03-21-2018 Chronic Essential hypertension (20 sources) Benign essential hypertension; Translations: [Essential (primary) hypertension] Onset: 6 11-22-2016 Chronic Other gastrointestinal disorders (20 sources) Irritable bowel syndrome with diarrhea; Translations: [Irritable bowel syndrome with diarrhea] Onset: 7 11-23-2016 Chronic Substance-related disorders (19 sources) Smoker; Translations: [Nicotine dependence, unspecified, uncomplicated] Onset: 6 05-20-2019 Chronic Past or Other Problems Problem Classification Problem Date Documented Da te Episodic/Chronic Diabetes mellitus without complication (20 sources) Hyperglycemia; Translations: [Impaired fasting glucose] Onset: 09-20-2017 09-20-2017 Episodic Genitourinary symptoms and ill-defined conditions (11 sources) Blood in urine; Translations: [Hematuria, unspecified] Onset: 11-24-2016 01-28-2017 Episodic Immunizations and screening for infectious disease (1 source) Encounter for immunization; Translations: [Encounter for immunization] Onset: 04-27-2023 Episodic Other aftercare (20 sources) Patient encounter status; Translations: [Other terminal operator (current) drug therapy] Onset: 06-21-2015 05-24-2020 Episodic Other and unspecified benign neoplasm (17 sources) History of polyp of colon; Translations: [Personal history of colonic polyps] Onset: 2014 11-22-2016 Episodic Other infections; including parasitic (6 sources) Personal history of other infectious and parasitic diseases; Translations: [History of COVID-19] Onset: 04-27-2023 04-27-2023 Episodic Other nervous system disorders (18 sources) Numbness of finger; Translations: [Anesthesia of skin] Onset: 09-19-2019 09-19-2019 Episodic Other screening for suspected conditions (not mental disorders or infectious disease) (1 source) Elevated prostate specific antigen [PSA]; Translations: [Elevated prostate specific antigen (PSA)] Onset: 07-13-2023 Episodic Other skin disorders (17 sources) Inflamed seborrheic keratosis; Translations: [Inflamed seborrheic keratosis] Onset: 05-20-2019 11-24-2019 Episodic Results Test Name Value Interpretation Reference Range Facil ity Vital Signs Date Time Vital Sign Value Performing Clinician Bib horvath 07-02-2023 15:59-0400 Body weight 68.04 kg Didi Zimmer MD Work Phone: [facility] 07-02-2023 15:59-0400 Diastolic blood pressure 82 mm[Hg] Didi Zimmer MD Work Phone: [facility] 07-02-2023 15:59-0400 Heart rate 72 /min Didi Zimmer MD Work Phone: [facility] 07-02-2023 15:59-0400 Respiratory rate 16 /min Didi Zimmer MD Work Phone: [facility] 07-02-2023 15:59-0400 Systolic blood pressure 120 mm[Hg] Didi Zimmer MD Work Phone: [facility] 04-27-2023 12:43-0400 Diastolic blood pressure 84 mm[Hg] Didi Zimmer MD Work Phone: [facility] 04-27-2023 12:43-0400 Systolic blood pressure 152 mm[Hg] Didi Zimmer MD Work Phone: [facility] 04-27-2023 12:08-0400 Body height 171.5 cm Didi Zimmer MD Work Phone: [facility] 04-27-2023 12:08-0400 Body weight 68.95 kg Didi Zimmer MD Work Phone: [facility] 04-27-2023 12:08-0400 Heart rate 76 /min Didi Zimmer MD Work Phone: [facility] 04-27-2023 12:08-0400 Respiratory rate 16 /min Didi Zimmer MD Work Phone: [facility] 04-18-2022 09:18-0400 Body height 171 cm Paramjit Carlin PA-C Work Phone: [facility] 04-18-2022 09:18-0400 Body temperature 98.1 [degF] Praamjit Carlin PA-C Work Phone: [facility] 04-18-2022 09:18-0400 Body weight 68.04 kg Paramjit Carlin PA-C Work Phone: [facility] 04-18-2022 09:18-0400 Diastolic blood pressure 72 mm[Hg] Paramjit Carlin PA-C Work Phone: [facility] 04-18-2022 09:18-0400 Heart rate 76 /min Paramjit Carlin PA-C Work Phone: [facility] 04-18-2022 09:18-0400 Respiratory rate 18 /min Paramjit Carlin PA-C Work Phone: [facility] 04-18-2022 09:18-0400 Systolic blood pressure 132 mm[Hg] Paramjit Carlin PA-C Work Phone: [facility] Encounters Encounter Date Encounter Type Care Provider Facility Start: 10-17-2023 Chart abstracting Didi alvarez MD Work Phone: [facility] Procedures Date Procedure Procedure Detail Performing Clinician Start: 04-17-2023 Lipid 1996 panel - S marce or Plasma Didi Zimmer MD Work Phone: Start: 04-18-2022 Adult depression scr eening assessment Paramjit Carlin PA-C Work Phone: Start: 04-03-2021 Adult depression scr eening assessment Didi Zimmer MD Work Phone: Start: 04-19-2020 Colonoscopy Didi alvarez MD Work Phone: Plan of Treatment Date Care Activity Detail Author Start: 04-27-2033 Urine microalbumin profile [facility] Start: 07-13-2028 Prostate Cancer Scre ening Discussion Prostate Cancer Screening Discussion [facility] Start: 07-13-2028 Prostate specific an tigen measurement Prostate Cancer Screening Discussion [facility] Start: 04-17-2028 Lipid 1996 panel - S marce or Plasma Lipid Screening [facility] Start: 04-17-2028 Lipid panel Lipid Screening [facility] Start: 04-17-2028 LIPID SCREEN LIPID SCREEN [facility] Start: 01-12-2028 PROSTATE CANCER SCRE ENING DISCUSSION PROSTATE CANCER SCREENING DISCUSSION [facility] Start: 10-20-2027 LIPID SCREEN LIPID SCREEN [facility] Start: 10-20-2027 PROSTATE CANCER SCRE ENING DISCUSSION PROSTATE CANCER SCREENING DISCUSSION [facility] Start: 04-11-2027 LIPID SCREEN LIPID SCREEN [facility] Start: 04-11-2027 PROSTATE CANCER SCRE ENING DISCUSSION PROSTATE CANCER SCREENING DISCUSSION [facility] Start: 04-05-2027 PNEUMOCOCCAL (1 - PCV) PNEUMOCOCCAL (1 - PCV) [facility] Immunizations Immunization Date Immunization Notes Care Provider Fa selene 04-27-2023 tetanus toxoid, redu mervin diphtheria toxoid, and acellular pertussis vaccine, adsorbed Didi Zimmer MD Work Phone: [facility] 02-24-2021 COVID-19 vaccine, fu ll dose (MODERNA) Didi iZmmer MD Work Phone: [facility] 01-27-2021 COVID-19 vaccine, fu ll dose (MODERNA) Didi Zimmer MD Work Phone: [facility] 10-08-2018 influenza, injectabl e, quadrivalent, contains preservative Didi Zimmer MD Work Phone: [facility] 10-08-2018 influenza virus vaccine, unspecified formulation Didi Zimmer MD Work Phone: [facility] 09-20-2017 influenza, injectabl e, quadrivalent, contains preservative Didi Zimmer MD Work Phone: [facility] 2014 influenza, seasonal, injectable Didi Zimmer MD Work Phone: [facility] 07-31-2013 influenza virus vaccine, unspecified formulation Didi Zimmer MD Work Phone: [facility] Work Phone: 11-14-2012 tetanus toxoid, redu mervin diphtheria toxoid, and acellular pertussis vaccine, adsorbed Didi Zimmer MD Work Phone: [facility] Work Phone: 2000 diphtheria and tetan us toxoids, adsorbed for pediatric use Didi Zimmer MD Work Phone: [facility] Work Phone: Payers Date Payer Category Payer Private Health Insurance [facility] CHOICE PLUS [id number] 2019-Present [phone] [id number] 2019 Private Health Insurance [facility] CHOICE PLUS [id number] 2019-Present [phone] [address] [id number] 2019 Unknown [id number] Social History Date Type Detail Facility Start: 11-23-2016 Tobacco smoking stat us [facility] Occasional tobacco smoker [facility] History of tobacco use Cigarette Smoker [facility] Start: 11-23-2016 End: 04-27-2023 Tobacco use and exposure Smokeless tobacco non-user [facility] Start: 11-18-2021 End: 08-24-2023 Alcohol intake Current drinker of alcohol (finding) [facility] Start: 05-24-2020 End: 04-25-2023 History SDOH Alcohol Frequency 5 [facility] Start: 05-24-2020 End: 04-25-2023 History SDOH Alcohol Std Drinks 2 [facility] Start: 05-24-2020 End: 04-25-2023 History SDOH Alcohol Binge 3 [facility] Start: 05-21-2020 End: 04-17-2022 History SDOH Social Connections Phone 4 [facility] Start: 05-21-2020 End: 04-25-2023 History SDOH Social Connections Get Together 1 [facility] Start: 05-21-2020 History SDOH Social Connections Membership 98 [facility] Start: 1960 Sex Assigned At Not on file C [facility] Start: 04-01-2022 End: 04-18-2022 Exposure to SARS-CoV-2 (event) Not sure [facility] Work Phone: Start: 04-18-2022 End: 04-27-2023 Tobacco smoking status NMIS Smokes tobacco daily [facility] Work Phone: Start: 04-18-2022 End: 11-29-2022 Cigarette pack-years [facility] Start: 11-29-2022 End: 04-25-2023 Social connection and isolation panel [facility] Do you belong to any clubs or organizations such as yazidism groups, unions, fraternal or athletic groups, or school groups? No [facility] Are you now , , , , never or living with a partner? [facility] How often to you hav e a drink containing alcohol? 4 or more times a week [facility] How many standard dr inks containing alcohol do you have on a typical day? 3 or 4 [facility] How often do you hav e 6 or more drinks on 1 occasion? Monthly [facility] How hard is it for y ou to pay for the very basics like food, housing, medical care, and heating Not hard at all [facility] Do you feel stress - tense, restless, nervous, or anxious, or unable to sleep at night because your mind is troubled all the time - these days [OSQ] Not at all [facility] (I/We) worried wheth er (my/our) food would run out before (I/we) got money to buy more. Never true [facility] How often do you hav e 6 or more drinks on 1 occasion? Monthly [facility] Clinical Notes 05-20-2019 to 11-27-2023 Clarisse Martins LPN - 10/17/2023 1:16 PM ESTTelephone Encounter - Didi Zimmer MD - 10/08/2023 9:40 AM ESTTelephone Encounter - Ani Turner OCCA - 10/08/2023 8:08 AM ESTPatient Instructions Note Date & Type Note Facility 11-27-2023 Note HNO ID: [id number] Author: VIDAL FINE LPN Service: ? Author Type: LICENSED NURSE Type: Progress Notes Filed: 11/27/2023 12:10 Note Text: Scan on 11/27/2023 12:01 PM by Stuart Freedman PA-C: Consultation - Orthopedics [facility] 11-21-2023 Note HNO ID: [id number] Author: VIDAL FINE LPN Service: ? Author Type: LICENSED NURSE Type: Progress Notes Filed: 11/21/2023 09:04 Note Text: Scan on 11/20/2023 1:10 PM by Stuart Freedman PA-C: Chemistry Scan on 11/20/2023 2:35 PM by Stuart Freedman PA-C: Miscellaneous Lab Scan on 11/21/2023 5:34 AM by Stuart Freedman PA-C: Miscellaneous Lab [facility] 11-20-2023 Note HNO ID: [id number] Author: VIDAL FINE LPN Service: ? Author Type: LICENSED NURSE Type: Progress Notes Filed: 11/20/2023 12:26 Note Text: Scan on 11/20/2023 11:34 AM by Stuart Freedman PA-C: Hematology Scan on 11/20/2023 12:10 PM by ProviderStuart PA-C: Chemistry [facility] 10-17-2023 Note HNO ID: [id number] Author: Clarisse Martins LPN Service: ? Author Type: ? Type: Progress Notes Filed: 10/17/2023 1:16 PM Note Text: Scan on 10/16/2023 3:16 PM by ProviderStuart PA-C: Consultation - Orthopedics [facility] 10-17-2023 History of Presen t illness Narrative Scan on 10/16/2023 3:16 PM by ProviderStuart PA-C: Consultation - Orthopedics documented in this encounter [facility] 10-08-2023 Miscellaneous Notes Formattin g of this note is different from the original. The following approved medication requests have been transmitted electronically. Requested Prescriptions Signed Prescriptions Disp Refills losartan (COZAAR) 100 mg tablet 60 tablet 5 Sig: Take 1 tablet by mouth two times a day. Authorizing Provider: DIDI ZIMMER MD Patient has been identified by name and date of : Yes Patient phones for refill(s): Requested Prescriptions Pending Prescriptions Disp Refills losartan (COZAAR) 100 mg tablet 60 tablet 5 Sig: Take 1 tablet by mouth two times a day. Date of last office visit in primary care: 07/02/2023 Date of next office visit in primary care: 05/02/2024 Last 2 Encounter Wt Readings: Date: Wt: 07/02/2023 68 kg (150 lb) 05/25/2023 68.9 kg (152 lb) Please advise. Thank you. SAKINA Cohen. documented in this encounter [facility] 08-24-2023 Note HNO ID: [id number] Author: Vidal Fine LPN Service: ? Author Type: ? Type: Progress Notes Filed: 08/24/2023 10:58 AM Note Text: Scan on 08/23/2023 10:11 AM by ProviderStuart PA-C: Consultation - General Surgery [facility] 08-24-2023 History of Presen t illness Narrative Scan on 08/23/2023 10:11 AM by Stuart Freedman PA-C: Consultation - General Surgery documented in this encounter [facility] 08-09-2023 Note HNO ID: [id number] Author: Clarisse Martins LPN Service: ? Author Type: ? Type: Progress Notes Filed: 08/09/2023 1:56 PM Note Text: Scan on 08/09/2023 10:32 AM by Stuart Freedman PA-C [facility] 08-09-2023 History of Presen t illness Narrative Scan on 08/09/2023 10:32 AM by Stuart Freedman PA-C documented in this encounter [facility] 08-06-2023 Note HNO ID: [id number] Author: Deepthi Avila Ma Service: ? Author Type: ? Type: Progress Notes Filed: 08/06/2023 4:05 PM Note Text: View External Labs - Hematology [ID [id number]] [facility] 07-24-2023 Note HNO ID: [id number] Author: Jose Alejandro Valdez LPN Service: ? Author Type: ? Type: Progress Notes Filed: 07/26/2023 11:12 AM Note Text: Scan on 07/23/2023 2:11 PM by ProviderStuart PA-C: Consultation - [facility] 07-02-2023 Note HNO ID: [id number] Author: Didi Zimmer MD Service: ? Author Type: Physician Type: Progress Notes Filed: 07/02/2023 4:44 PM Note Text: Chief Complaint Patient presents with: Pain HPI Tom D Madeline is a 62 year old male who presents here today for possible right lower Quad hernia. Office visit - possible hernia - 07/02/2023 Patient started to notice a bulge in the RLQ about a month ago, more noticeable with coughing. . Sometimes a mild discomfort. Not aware of doing anything to start it. Past medical history, appointments, medications, allergies reviewed. Previous Medical History PAST MEDICAL HISTORY Diagnosis Date Elevated fasting blood sugar 09/20/2017 Elevated PSA 03/21/2018 Essential hypertension, benign GERD without esophagitis 09/20/2017 Hematuria 11/24/2016 Repeat UA 01/2017 was normal. History of colon polyps 2014 History of COVID-19 04/27/202302/2023 Inflamed seborrheic keratosis 05/20/201906/2019 Biopsy/excision chest, pathology shows irritated SK Irritable bowel syndrome with diarrhea 11/23/2016 Mixed hyperlipidemia 08/30/2006 Numbness of finger 09/19/2019 Since about 2018: Left index. Due to cervical nerve pinching. Prostate cancer (HCC) 11/18/[address] Koehler Smoker 08/30/2006 Started around age 20 up to 1 PPD and now at 1 pack a week. Previous Surgical History PAST SURGICAL HISTORY Procedure Laterality Date COLONOSCOPY 09/2013 RADICAL PROSTATECTOMY 08/2022 Family History FAMILY HISTORY Problem Relation Age of Onset Hypertension Father Cancer Mother thyroid Breast Cancer Mother Heart Mother A.Fib Patient Allergies ALLERGIES Allergen Reactions Desenex [Clotrimazo* Hives Hctz [Thiazides] Hives Cozaar [Losartan Po* Cough Lisinopril Cough Current Medications Current Outpatient Medications on File Prior to Visit Medication Sig hyoscyamine SR (LEVBID) 0.375 mg 12 hr tablet Take 1 tablet by mouth twice daily. losartan (COZAAR) 100 mg tablet Take 1 tablet by mouth twice daily. No current facility-administered medications on file prior to visit. Social History Social History Tobacco Use Smoking status: Every Day Packs/day: 0.00 Years: 20.00 Additional pack years: 0.00 Total pack years: 0.00 Types: Cigarettes Smokeless tobacco: Never Substance Use Topics Alcohol use: Yes Comment: occasionally Drug use: No Review of Symptoms REVIEW OF SYSTEMS See HPI EXAM: BP 120/82 (BP Site: Left Arm, BP Position: Sitting, BP Cuff Size: Regular Adult) Pulse 72 Resp 16 Wt 68 kg (150 lb) BMI 23.15 kg/m? General Appearance: Well appearing, alert, in no acute distress, well-hydrated, well nourished.. Genitalia: Normal, Penis normal. No urethral discharge. Scrotum normal to palpation. Has a hernia in the right inguinal canal. Health Maintenance List BP CONTROLLED (<130/80) due on 05/24/2021 DEPRESSION ASSESSMENT Never done SHINGRIX VACCINE(1 of 2) due on 04/27/2024 COVID-19 VACCINE(3 - Moderna series) due on 04/27/2024 PNEUMOCOCCAL(1 - PCV) due on 04/05/2027 INFLUENZA(1) due on 07/06/2023 ANNUAL PCP TEAM CHRONIC DISEASE VISIT due on 05/25/2024 COLORECTAL CANCER SCREENING due on 04/19/2025 DIABETES SCREEN due on 04/17/2026 PROSTATE CANCER SCREENING DISCUSSION due on 01/12/2028 LIPID SCREEN due on 04/17/2028 DTAP,TDAP,TD(4 - Td or Tdap) due on 04/27/2033 HPV VACCINE Aged Out HEPATITIS C SCREENING Discontinued HIV SCREENING Discontinued Data reviewed A/P ASSESSMENT/PLAN: 1. Right inguinal hernia - ICD9: 550.90, ICD10: K40.90 - CONSULT TO GENERAL SURGERY: Dr. Manuel Zimmer MD [facility] 07-02-2023 History of Presen t illness Narrative Chief Complaint Patient presents with: Pain HPI Tom Correa is a 62 year old male who presents here today for possible right lower Quad hernia. Office visit - possible hernia - 07/02/2023 Patient started to notice a bulge in the RLQ about a month ago, more noticeable with coughing. . Sometimes a mild discomfort. Not aware of doing anything to start it. Past medical history, appointments, medications, allergies reviewed. Previous Medical History PAST MEDICAL HISTORY Diagnosis Date Elevated fasting blood sugar 09/20/2017 Elevated PSA 03/21/2018 Essential hypertension, benign GERD without esophagitis 09/20/2017 Hematuria 11/24/2016 Repeat UA 01/2017 was normal. History of colon polyps 2014 History of COVID-19 04/27/202302/2023 Inflamed seborrheic keratosis 05/20/201906/2019 Biopsy/excision chest, pathology shows irritated SK Irritable bowel syndrome with diarrhea 11/23/2016 Mixed hyperlipidemia 08/30/2006 Numbness of finger 09/19/2019 Since about 2018: Left index. Due to cervical nerve pinching. Prostate cancer (HCC) 11/18/[address] Koehler Smoker 08/30/2006 Started around age 20 up to 1 PPD and now at 1 pack a week. Previous Surgical History PAST SURGICAL HISTORY Procedure Laterality Date COLONOSCOPY 09/2013 RADICAL PROSTATECTOMY 08/2022 Family History FAMILY HISTORY Problem Relation Age of Onset Hypertension Father Cancer Mother thyroid Breast Cancer Mother Heart Mother A.Fib Patient Allergies ALLERGIES Allergen Reactions Desenex [Clotrimazo* Hives Hctz [Thiazides] Hives Cozaar [Losartan Po* Cough Lisinopril Cough Current Medications Current Outpatient Medications on File Prior to Visit Medication Sig hyoscyamine SR (LEVBID) 0.375 mg 12 hr tablet Take 1 tablet by mouth twice daily. losartan (COZAAR) 100 mg tablet Take 1 tablet by mouth twice daily. No current facility-administered medications on file prior to visit. Social History Social History Tobacco Use Smoking status: Every Day Packs/day: 0.00 Years: 20.00 Additional pack years: 0.00 Total pack years: 0.00 Types: Cigarettes Smokeless tobacco: Never Substance Use Topics Alcohol use: Yes Comment: occasionally Drug use: No Review of Symptoms REVIEW OF SYSTEMS See HPI EXAM: BP 120/82 (BP Site: Left Arm, BP Position: Sitting, BP Cuff Size: Regular Adult) Pulse 72 Resp 16 Wt 68 kg (150 lb) BMI 23.15 kg/m General Appearance: Well appearing, alert, in no acute distress, well-hydrated, well nourished.. Genitalia: Normal, Penis normal. No urethral discharge. Scrotum normal to palpation. Has a hernia in the right inguinal canal. Health Maintenance List BP CONTROLLED (<130/80) due on 05/24/2021 DEPRESSION ASSESSMENT Never done SHINGRIX VACCINE(1 of 2) due on 04/27/2024 COVID-19 VACCINE(3 - Moderna series) due on 04/27/2024 PNEUMOCOCCAL(1 - PCV) due on 04/05/2027 INFLUENZA(1) due on 07/06/2023 ANNUAL PCP TEAM CHRONIC DISEASE VISIT due on 05/25/2024 COLORECTAL CANCER SCREENING due on 04/19/2025 DIABETES SCREEN due on 04/17/2026 PROSTATE CANCER SCREENING DISCUSSION due on 01/12/2028 LIPID SCREEN due on 04/17/2028 DTAP,TDAP,TD(4 - Td or Tdap) due on 04/27/2033 HPV VACCINE Aged Out HEPATITIS C SCREENING Discontinued HIV SCREENING Discontinued Data reviewed A/P ASSESSMENT/PLAN: 1. Right inguinal hernia - ICD9: 550.90, ICD10: K40.90 - CONSULT TO GENERAL SURGERY: Dr. Manuel Zimmer MD documented in this encounter [facility] 05-25-2023 Note HNO ID: [id number] Author: Paramjit Carlin PA-C Service: ? Author Type: Physician Interior Block Wirer Type: Progress Notes Filed: 05/25/2023 10:44 AM Note Text: Chief Complaint Patient presents with: Recheck: Blood pressure HPI Tom Correa is a 62 year old male who presents here today for recheck. At last visit BP was elevated. Home readings are averaging 110-120/70-80s. Last 6 Encounter BP Readings: Date: BP: 05/25/2023 118/80 04/27/2023 152/84 04/18/2022 132/72 11/10/2021 130/68 04/05/2021 122/80 05/24/2020 110/73 Past medical history, appointments, medications, allergies reviewed. Previous Medical History PAST MEDICAL HISTORY Diagnosis Date Elevated fasting blood sugar 09/20/2017 Elevated PSA 03/21/2018 Essential hypertension, benign GERD without esophagitis 09/20/2017 Hematuria 11/24/2016 Repeat UA 01/2017 was normal. History of colon polyps 2014 History of COVID-19 04/27/202302/2023 Inflamed seborrheic keratosis 05/20/201906/2019 Biopsy/excision chest, pathology shows irritated SK Irritable bowel syndrome with diarrhea 11/23/2016 Mixed hyperlipidemia 08/30/2006 Numbness of finger 09/19/2019 Since about 2018: Left index. Due to cervical nerve pinching. Prostate cancer (HCC) 11/18/[address] Koehler Smoker 08/30/2006 Started around age 20 up to 1 PPD and now at 1 pack a week. Previous Surgical History PAST SURGICAL HISTORY Procedure Laterality Date COLONOSCOPY 09/2013 RADICAL PROSTATECTOMY 08/2022 Family History FAMILY HISTORY Problem Relation Age of Onset Hypertension Father Cancer Mother thyroid Breast Cancer Mother Heart Mother A.Fib Patient Allergies ALLERGIES Allergen Reactions Desenex [Clotrimazo* Hives Hctz [Thiazides] Hives Cozaar [Losartan Po* Cough Lisinopril Cough Current Medications Current Outpatient Medications on File Prior to Visit Medication Sig hyoscyamine SR (LEVBID) 0.375 mg 12 hr tablet Take 1 tablet by mouth twice daily. losartan (COZAAR) 100 mg tablet Take 1 tablet by mouth twice daily. No current facility-administered medications on file prior to visit. Social History Social History Tobacco Use Smoking status: Every Day Packs/day: 0.00 Years: 20.00 Total pack years: 0.00 Types: Cigarettes Smokeless tobacco: Never Substance Use Topics Alcohol use: Yes Comment: occasionally Drug use: No Review of Symptoms REVIEW OF SYSTEMS See hpi EXAM: BP 118/80 (BP Site: Left Arm, BP Position: Sitting, BP Cuff Size: Regular Adult) Pulse 67 Temp 36.5 ?C (97.7 ?F) Resp 16 Wt 68.9 kg (152 lb) BMI 23.46 kg/m? General Appearance: Well appearing, alert, in no acute distress, well-hydrated, well nourished.. Health Maintenance List BP CONTROLLED (<130/80) due on 05/24/2021 DEPRESSION ASSESSMENT Never done SHINGRIX VACCINE(1 of 2) due on 04/27/2024 COVID-19 VACCINE(3 - Moderna series) due on 04/27/2024 PNEUMOCOCCAL(1 - PCV) due on 04/05/2027 INFLUENZA(1) due on 07/06/2023 ANNUAL PCP TEAM CHRONIC DISEASE VISIT due on 04/27/2024 COLORECTAL CANCER SCREENING due on 04/19/2025 DIABETES SCREEN due on 04/17/2026 PROSTATE CANCER SCREENING DISCUSSION due on 01/12/2028 LIPID SCREEN due on 04/17/2028 DTAP,TDAP,TD(4 - Td or Tdap) due on 04/27/2033 HPV VACCINE Aged Out HEPATITIS C SCREENING Discontinued HIV SCREENING Discontinued Data reviewed ASSESSMENT/PLAN: 1. Hypertension, essential - ICD9: 401.9, ICD10: I10 - Controlled Will continue current management. Paramjit Carlin PA-C [facility] 04-27-2023 Note HNO ID: [id number] Author: Didi Zimmer MD Service: ? Author Type: Physician Type: Progress Notes Filed: 04/27/2023 8:58 PM Note Text: Chief Complaint Patient presents with: Physical HPI Tom Correa is a 62 year old male who presents here today for Physical. Office visit - wellness exam Patient has covid at the end of February 2023. Still having joint pain and sinus congestion. Patient with hx of HTN, Hyperlipidemia, elevated BS, GERD, IBS, smoker, Prostate cancer, left index finger numbness due to a cervical pinched nerve. Continues to f/u with Urology. Office visit - wellness exam 04/18/2022 Patient with hx of HTN, HLP, GERD, smoker, elevated glucose, prostate cancer and those as below. Patient overall doing okay. Wants to work on smoking cessation. Seeing Dr. Faye for his prostate cancer. Currently monitoring it and will get rechecked in june. At that point may consider surgical removal. Past medical history, appointments, medications, allergies reviewed. Previous Medical History PAST MEDICAL HISTORY Diagnosis Date Elevated fasting blood sugar 09/20/2017 Elevated PSA 03/21/2018 Essential hypertension, benign GERD without esophagitis 09/20/2017 Hematuria 11/24/2016 Repeat UA 01/2017 was normal. History of colon polyps 2014 Inflamed seborrheic keratosis 05/20/201906/2019 Biopsy/excision chest, pathology shows irritated SK Irritable bowel syndrome with diarrhea 11/23/2016 Mixed hyperlipidemia 08/30/2006 Prostate cancer (HCC) 11/18/[address] Koehler Smoker 08/30/2006 Started around age 20 up to 1 PPD and now at 1 pack a week. Previous Surgical History PAST SURGICAL HISTORY Procedure Laterality Date COLONOSCOPY 09/2013 RADICAL PROSTATECTOMY 08/2022 Family History FAMILY HISTORY Problem Relation Age of Onset Hypertension Father Cancer Mother thyroid Breast Cancer Mother Heart Mother A.Fib Patient Allergies ALLERGIES Allergen Reactions Desenex [Clotrimazo* Hives Hctz [Thiazides] Hives Cozaar [Losartan Po* Cough Lisinopril Cough Current Medications Current Outpatient Medications on File Prior to Visit Medication Sig losartan (COZAAR) 100 mg tablet Take 1 tablet by mouth twice daily. hyoscyamine SR (LEVBID) 0.375 mg 12 hr tablet Take 1 tablet by mouth twice daily. buPROPion SR (ZYBAN SR; WELLBUTRIN SR) 150 mg 12 hr tablet Take 1 tablet by mouth twice daily. No current facility-administered medications on file prior to visit. Social History Social History Tobacco Use Smoking status: Every Day Packs/day: 0.00 Years: 20.00 Pack years: 0.00 Types: Cigarettes Smokeless tobacco: Never Substance Use Topics Alcohol use: Yes Comment: occasionally Drug use: No Review of Symptoms REVIEW OF SYSTEMS GENERAL: No weight loss, malaise or fevers HEENT: Negative for frequent or significant headaches, No changes in hearing or vision, no nose bleeds or other nasal problems NECK: Negative for lumps, goiter, pain and significant neck swelling RESPIRATORY: Negative for cough, hemoptysis, wheezing, COPD, dyspnea or shortness of breath CARDIOVASCULAR: Negative for chest pain, leg swelling, hypertension, CHF or palpitations GI: No nausea, vomiting, or diarrhea, No heartburn or reflux symptoms, and no blood. IBS controlled with the levebid. : No history of dysuria, frequency or blood MUSCULOSKELETAL: since having COVID he seem to have joint aches in the elbows and wrists. It has gradually decreased and seem to bother him most in the morning. Improves with movement. SKIN: Negative for lesions, rash, and itching PSYCH: Negative for sleep disturbance, mood disorder and recent psychosocial stressors HEMATOLOGY/LYMPHOLOGY: Negative for prolonged bleeding, bruising easily or swollen nodes ENDOCRINE: Negative for cold or heat intolerance, polyuria, polydipsia and goiter NEURO: No history of headaches, syncope, paralysis, seizures or tremors EXAM: BP 140/90 (BP Site: Left Arm, BP Position: Sitting, BP Cuff Size: Regular Adult) Pulse 76 Resp 16 Ht 171.5 cm (5' 7.5 ) Wt 68.9 kg (152 lb) BMI 23.46 kg/m? BP 152/84 Pulse 76 Resp 16 Ht 171.5 cm (5' 7.5 ) Wt 68.9 kg (152 lb) BMI 23.46 kg/m? Last 4 Encounter Wt Readings: Date: Wt: 04/27/2023 68.9 kg (152 lb) 04/18/2022 68 kg (150 lb) 11/10/2021 72.1 kg (159 lb) 04/05/2021 73.5 kg (162 lb) General Appearance: Well appearing, alert, in no acute distress, well-hydrated, well nourished.. Skin: Skin color, texture, turgor normal, no suspicious rashes or lesions. Head: Normocephalic, no masses, lesions, tenderness or abnormalities. Eyes: Anicteric sclera. Pupils are equally round and reactive to light. Extraocular movements are intact. . Ears: External ears, TM's normal, canals clear. Nose/Sinuses: Nares normal, septum midline, mucosa normal, no drainage or sinus tenderness. Oropharynx: Lips, mucosa, and tongue tab (more content not included)... [facility] 04-27-2023 Instructions Didi Zimmer MD - 04/27/2023 12:26 PM EDT If you are considering getting the shingrix vaccine for the prevention of shingles please check with insurance first to see if covered. [facility] History of Presen t illness Narrative Chief Complaint Patient presents with: Physical HPI Tom Correa is a 62 year old male who presents here today for Physical. Office visit - wellness exam Patient has covid at the end of February 2023. Still having joint pain and sinus congestion. Patient with hx of HTN, Hyperlipidemia, elevated BS, GERD, IBS, smoker, Prostate cancer, left index finger numbness due to a cervical pinched nerve. Continues to f/u with Urology. Office visit - wellness exam 04/18/2022 Patient with hx of HTN, HLP, GERD, smoker, elevated glucose, prostate cancer and those as below. Patient overall doing okay. Wants to work on smoking cessation. Seeing Dr. Faye for his prostate cancer. Currently monitoring it and will get rechecked in june. At that point may consider surgical removal. Past medical history, appointments, medications, allergies reviewed. Previous Medical History PAST MEDICAL HISTORY Diagnosis Date Elevated fasting blood sugar 09/20/2017 Elevated PSA 03/21/2018 Essential hypertension, benign GERD without esophagitis 09/20/2017 Hematuria 11/24/2016 Repeat UA 01/2017 was normal. History of colon polyps 2014 Inflamed seborrheic keratosis 05/20/201906/2019 Biopsy/excision chest, pathology shows irritated SK Irritable bowel syndrome with diarrhea 11/23/2016 Mixed hyperlipidemia 08/30/2006 Prostate cancer (HCC) 11/18/[address] Koehler Smoker 08/30/2006 Started around age 20 up to 1 PPD and now at 1 pack a week. Previous Surgical History PAST SURGICAL HISTORY Procedure Laterality Date COLONOSCOPY 09/2013 RADICAL PROSTATECTOMY 08/2022 Family History FAMILY HISTORY Problem Relation Age of Onset Hypertension Father Cancer Mother thyroid Breast Cancer Mother Heart Mother A.Fib Patient Allergies ALLERGIES Allergen Reactions Desenex [Clotrimazo* Hives Hctz [Thiazides] Hives Cozaar [Losartan Po* Cough Lisinopril Cough Current Medications Current Outpatient Medications on File Prior to Visit Medication Sig losartan (COZAAR) 100 mg tablet Take 1 tablet by mouth twice daily. hyoscyamine SR (LEVBID) 0.375 mg 12 hr tablet Take 1 tablet by mouth twice daily. buPROPion SR (ZYBAN SR; WELLBUTRIN SR) 150 mg 12 hr tablet Take 1 tablet by mouth twice daily. No current facility-administered medications on file prior to visit. Social History Social History Tobacco Use Smoking status: Every Day Packs/day: 0.00 Years: 20.00 Pack years: 0.00 Types: Cigarettes Smokeless tobacco: Never Substance Use Topics Alcohol use: Yes Comment: occasionally Drug use: No Review of Symptoms REVIEW OF SYSTEMS GENERAL: No weight loss, malaise or fevers HEENT: Negative for frequent or significant headaches, No changes in hearing or vision, no nose bleeds or other nasal problems NECK: Negative for lumps, goiter, pain and significant neck swelling RESPIRATORY: Negative for cough, hemoptysis, wheezing, COPD, dyspnea or shortness of breath CARDIOVASCULAR: Negative for chest pain, leg swelling, hypertension, CHF or palpitations GI: No nausea, vomiting, or diarrhea, No heartburn or reflux symptoms, and no blood. IBS controlled with the levebid. : No history of dysuria, frequency or blood MUSCULOSKELETAL: since having COVID he seem to have joint aches in the elbows and wrists. It has gradually decreased and seem to bother him most in the morning. Improves with movement. SKIN: Negative for lesions, rash, and itching PSYCH: Negative for sleep disturbance, mood disorder and recent psychosocial stressors HEMATOLOGY/LYMPHOLOGY: Negative for prolonged bleeding, bruising easily or swollen nodes ENDOCRINE: Negative for cold or heat intolerance, polyuria, polydipsia and goiter NEURO: No history of headaches, syncope, paralysis, seizures or tremors EXAM: BP 140/90 (BP Site: Left Arm, BP Position: Sitting, BP Cuff Size: Regular Adult) Pulse 76 Resp 16 Ht 171.5 cm (5' 7.5 ) Wt 68.9 kg (152 lb) BMI 23.46 kg/m BP 152/84 Pulse 76 Resp 16 Ht 171.5 cm (5' 7.5 ) Wt 68.9 kg (152 lb) BMI 23.46 kg/m Last 4 Encounter Wt Readings: Date: Wt: 04/27/2023 68.9 kg (152 lb) 04/18/2022 68 kg (150 lb) 11/10/2021 72.1 kg (159 lb) 04/05/2021 73.5 kg (162 lb) General Appearance: Well appearing, alert, in no acute distress, well-hydrated, well nourished.. Skin: Skin color, texture, turgor normal, no suspicious rashes or lesions. Head: Normocephalic, no masses, lesions, tenderness or abnormalities. Eyes: Anicteric sclera. Pupils are equally round and reactive to light. Extraocular movements are intact. . Ears: External ears, TM's normal, canals clear. Nose/Sinuses: Nares normal, septum midline, mucosa normal, no drainage or sinus tenderness. Oropharynx: Lips, mucosa, and tongue normal, teeth and gums normal, oropharynx normal. Neck: Supple, no adenopathy; thyroid symmetric, normal size, no bruits. Lungs: Lungs clear to auscultation. No wheezing, rhonchi, rales.. Heart: RRR without murmur, gallop, or rubs. No ectopy. Abdomen: Normal abdominal exam, Abdomen soft, non-tender. Bowel sounds normal. No masses, organomegaly. Extremities: No deformities, edema, skin discoloration. Good capillary refill. . Musculoskeletal: Muscular strength intact, No joint swelling, deformity, or tenderness. Peripheral Pulses: Normal. Neurologic: Gait normal. Reflexes normal and symmetric. Sensation to light touch and crainal nerves 2-12 intact.. Genitalia: Normal, Penis normal. No urethral discharge. Scrotum normal to palpation. No hernia.. Health Maintenance List SHINGRIX VACCINE(1 of 2) Never done COVID-19 VACCINE(3 - Booster for Moderna series) due on 04/21/2021 BP CONTROLLED (<130/80) due on 05/24/2021 DEPRESSION ASSESSMENT Never done DTAP,TDAP,TD(3 - Td or Tdap) due on 11/14/2022 ANNUAL PCP TEAM CHRONIC DISEASE VISIT due on 04/18/2023 PNEUMOCOCCAL(1 - PCV) due on 04/05/2027 INFLUENZA(Season Ended) due on 07/06/2023 COLORECTAL CANCER SCREENING due on 04/19/2025 DIABETES SCREEN due on 04/17/2026 PROSTATE CANCER SCREENING DISCUSSION due on 01/12/2028 LIPID SCREEN due on 04/17/2028 HEPATITIS C SCREENING Discontinued HIV SCREENING Discontinued Data reviewed Component Latest Ref Rng & Units 04/11/2022 10/20/2022 04/17/2023 Protein, Total 6.3 - 8.0 g/dL 6.9 7.0 Albumin 3.9 - 4.9 g/dL 4.5 4.5 Calcium 8.5 - 10.2 mg/dL 9.5 9.6 Bilirubin, Total 0.2 - 1.3 mg/dL 0.9 1.0 Alkaline Phosphatase 38 - 113 U/L 74 73 AST 14 - 40 U/L 21 17 ALT 10 - 54 U/L 26 22 Glucose 74 - 99 mg/dL 102 (H) 104 (H) BUN 9 - 24 mg/dL 14 13 Creatinine 0.73 - 1.22 mg/dL 0.88 0.89 Sodium 136 - 144 mmol/L 136 138 Potassium 3.7 - 5.1 mmol/L 4.2 4.7 Chloride 97 - 105 mmol/L 100 102 CO2 22 - 30 mmol/L 23 24 Anion Gap 9 - 18 mmol/L 13 12 eGFR >=60 mL/min/1.73m 98 97 Color Yellow Yellow Clarity Clear Clear Glucose, Urine Negative Negative Bilirubin, Urine Negative Negative Ketones, Urine Negative Negative Specific [place], Ur 1.005 - 1.030 1.020 Hemoglobin/Blood,Ur Negative Negative pH, Urine 5.0 - 8.0 5.0 Protein, Urine Negative Negative Urobilinogen Negative Negative Nitrites Negative Negative Leukest Negative Negative WBC, Urine 0-5 /HPF 0-5 /HPF RBC, Urine 0-3 /HPF 0-3 /HPF Total Cholesterol, Nonfasting <200 mg/dL 187 187 199 Triglycerides, Nonfasting <150 mg/dL 280 (H) 175 (H) 253 (H) HDL Cholesterol, Nonfasting >39 mg/dL 37 (L) 41 40 LDL Cholesterol, Nonfasting <100 mg/dL 94 111 (H) 108 (H) Non HDL Cholesterol, Nonfasting <130 mg/dL 150 (H) 146 (H) 159 (H) VLDL Cholesterol, Nonfasting <30 mg/dL 56 (H) 35 (H) 51 (H) Total Chol/HDL Ratio, Nonfasting <5.10 mg/dL 5.05 4.56 4.98 LDL/HDL Ratio, Nonfasting <2.54 mg/dL 2.54 (H) 2.71 (H) 2.70 (H) Hemoglobin A1C 4.3 - 5.6 % 5.4 5.3 Estimated Average Glucose mg/dL 108 105 A/P ASSESSMENT/PLAN: 1. Well adult exam - ICD9: V70.0, ICD10: Z00.00 (primary diagnosis) - Counseled on healthy diet and regular exercise - Follow up for annual exam in one year 2. Essential hypertension, benign - ICD9: 401.1, ICD10: I10 - Uncontrolled - Continue current medications - Recommend home blood pressure monitoring, to bring results to next visit - Encouraged sodium restriction, DASH or Mediterranean diet - Recommend regular aerobic exercise - Follow up in 4 weeks for hypertension visit 3. Mixed hyperlipidemia - ICD9: 272.2, ICD10: E78.2 - Controlled - Counseled on healthy diet and regular exercise 4. GERD without esophagitis - ICD9: 530.81, ICD10: K21.9 - controlled with diet. 5. Elevated fasting blood sugar - ICD9: 790.21, ICD10: R73.01 - good A1c with life style changes. 6. Irritable bowel syndrome with diarrhea - ICD9: 564.1, ICD10: K58.0 - cont Levbid 7. Smoker - ICD9: 305.1, ICD10: F17.200 - Cessation encouraged. - Counseling was given focusing on the harmful effects of this addiction especially given the patient's medical condition(s) which will be worsened because of the chemicals in tobacco. 8. Prostate cancer (HCC) - ICD9: 185, ICD10: C61 - management per Urology 9. Numbness of finger - ICD9: 782.0, ICD10: R20.0 - chronic. Cont HEP for neck. 10. Encounter for immunization - ICD9: V03.89, ICD10: Z23 - TDAP VACCINE, AGE 7+ YR (ADACEL, BOOSTRIX): given The following approved medication requests have been transmitted electronically. Requested Prescriptions Signed Prescriptions Disp Refills hyoscyamine SR (LEVBID) 0.375 mg 12 hr tablet 180 tablet 1 Sig: Take 1 tablet by mouth twice daily. F/u in 4 weeks HTN med check F/u in a year for WAE or sooner if issues. Didi Zimmer MD documented [facility] 04-09-2023 Miscellaneous Notes Formattin g of this note is different from the original. Patient has been identified by name and date of : Yes Patient phones for refill(s): Requested Prescriptions Pending Prescriptions Disp Refills hyoscyamine SR (LEVBID) 0.375 mg 12 hr tablet 60 tablet 11 Sig: Take 1 tablet by mouth twice daily. Date of last office visit in primary care: [facility] 04/18/2022 Appointment scheduled 04/27/23 Last 2 Encounter Wt Readings: Date: Wt: 04/18/2022 68 kg (150 lb) 11/10/2021 72.1 kg (159 lb) Please advise. Thank you. SAKINA Cohen documented in [facility] 04-09-2023 Miscellaneous Notes Formattin g of this note is different from the original. Patient has been identified by name and date of : Yes Patient phones for refill(s): Requested Prescriptions Pending Prescriptions Disp Refills losartan (COZAAR) 100 mg tablet 60 tablet 5 Sig: Take 1 tablet by mouth twice daily. Date of last office visit in primary care: [facility] 04/18/2022 Appointment scheduled 04/27/23 Last 2 Encounter Wt Readings: Date: Wt: 04/18/2022 68 kg (150 lb) 11/10/2021 72.1 kg (159 lb) Please advise. Thank you. SAKINA Cohen documented [facility] 01-20-2023 Note HNO ID: [id number] Author: Chuyita Salas MA Service: ? Author Type: Filament Welder Type: Progress Notes Filed: 01/20/2023 7:39 PM Note Text: Scan on 01/18/2023 1:39 PM by External Provider: Karina - ASHLIE Salas MA [facility] 01-20-2023 History of Presen t illness Narrative Scan on 01/18/2023 1:39 PM by External Provider: Consultation - ASHLIE Salas MA documented in this encounter [facility] 10-23-2022 Miscellaneous Notes Formattin g of this note might be different from the original. Patient notified of results and provider's instructions. Patient verbalizes understanding. Vidal Fine LPN Let patient know that triglycerides have improved. However LDL went up a hair. Continue to work on diet. I have put in labs for his visit in April. documented in this encounter [facility] 10-05-2022 Miscellaneous Notes Formattin g of this note might be different from the original. Spoke with pt and information listed below given. Pt verbalizes understanding. Physical scheduled for 04-27-23. Deanne Queen LPN Help patient set up complete PE on or after 04/18/2023. The following approved medication requests have been transmitted electronically. Requested Prescriptions Signed Prescriptions Disp Refills losartan (COZAAR) 100 mg tablet 60 tablet 5 Sig: Take 1 tablet by mouth twice daily. Authorizing Provider: DIDI ZIMMER MD Patient has been identified by name and date of : Yes Requested Prescriptions Pending Prescriptions Disp Refills losartan (COZAAR) 100 mg tablet 60 tablet 5 Sig: Take 1 tablet by mouth twice daily. RX INSTRUCTIONS: Patient aware RX will be sent to pharmacy. No need to notify patient. Chuyita Salas MA [place]: 04/2022 Not due until 04/2023 Last refill; 03/2022 documented in this [facility] 10-04-2022 Miscellaneous Notes Formattin g of this note might be different from the original. Prescription was filled 04/2022 60 tablets with 11 refills. Chuyita Salas MA documented in this [facility] 09-07-2022 History of Presen t illness Narrative Please see Urology OV report: Scan on 09/07/2022 11:18 AM by External Provider: Consultation - ASHLIE Martins LPN documented in this [facility] 04-18-2022 Instructions Paramjit Carlin PA-C - 04/18/2022 9:48 AM EDT Please get cholesterol rechecked in approx 6 months. Then follow up next year for your physical. Paramjit Carlin PA-C documented in this [facility] 04-18-2022 History of Presen t illness Narrative Chief Complaint Patient presents with: Physical HPI Tom Correa is a 61 year old male who presents here today for physical. Patient with hx of HTN, HLP, GERD, smoker, elevated glucose, prostate cancer and those as below. Patient overall doing okay. Wants to work on smoking cessation. Seeing Dr. Faye for his prostate cancer. Currently monitoring it and will get rechecked in june. At that point may consider surgical removal. Past medical history, appointments, medications, allergies reviewed. Previous Medical History PAST MEDICAL HISTORY Diagnosis Date Elevated fasting blood sugar 09/20/2017 Elevated PSA 03/21/2018 Essential hypertension, benign GERD without esophagitis 09/20/2017 Hematuria 11/24/2016 Repeat UA 01/2017 was normal. History of colon polyps 2014 Inflamed seborrheic keratosis 05/20/201906/2019 Biopsy/excision chest, pathology shows irritated SK Irritable bowel syndrome with diarrhea 11/23/2016 Mixed hyperlipidemia 08/30/2006 Prostate cancer (HCC) 11/18/[address] Koehler Smoker 08/30/2006 Started around age 20 up to 1 PPD and now at 1 pack a week. Previous Surgical History PAST SURGICAL HISTORY Procedure Laterality Date COLONOSCOPY 09/2013 Family History FAMILY HISTORY Problem Relation Age of Onset Hypertension Father Cancer Mother thyroid Breast Cancer Mother Heart Mother A.Fib Patient Allergies ALLERGIES Allergen Reactions Desenex [Clotrimazo* Hives Hctz [Thiazides] Hives Cozaar [Losartan Po* Cough Lisinopril Cough Current Medications Current Outpatient Medications on File Prior to Visit Medication Sig hyoscyamine SR (LEVBID) 0.375 mg 12 hr tablet Take 1 tablet by mouth twice daily. losartan (COZAAR) 100 mg tablet Take 1 tablet by mouth twice daily. omega-3 fatty acids 1,000 mg cap Take 2 capsules by mouth once daily. fluticasone (FLONASE) 50 mcg/actuation nasal spray Use 1 [place] in each nostril once daily. atenolol (TENORMIN) 25 mg tablet Take 1 tablet by mouth once daily. No current facility-administered medications on file prior to visit. Social History Social History Tobacco Use Smoking status: Current Some Day Smoker Packs/day: 0.00 Years: 20.00 Pack years: 0.00 Types: Cigarettes Smokeless tobacco: Never Used Substance Use Topics Alcohol use: Yes Comment: occasionally Drug use: No Review of Symptoms REVIEW OF SYSTEMS GENERAL: No weight loss, malaise or fevers HEENT: No changes in hearing or vision, no nose bleeds or other nasal problems NECK: Negative for lumps, goiter, pain and significant neck swelling RESPIRATORY: Negative for cough, hemoptysis, wheezing, COPD, dyspnea or shortness of breath CARDIOVASCULAR: Negative for chest pain, leg swelling, CHF or palpitations GI: Negative for abdominal discomfort, blood in stools or black stools, change in bowel habit, heart burn, nausea, vomiting : No history of dysuria, frequency or incontinence MUSCULOSKELETAL: Negative for joint pain or swelling, back pain or muscle pain SKIN: Negative for lesions, rash, and itching PSYCH: Negative for sleep disturbance, mood disorder and recent psychosocial stressors HEMATOLOGY/LYMPHOLOGY: Negative for prolonged bleeding, bruising easily or swollen nodes ENDOCRINE: Negative for cold or heat intolerance, polyuria, polydipsia and goiter NEURO: No history of headaches, syncope, paralysis, seizures or tremors EXAM: BP 132/72 (BP Site: Right Arm, BP Position: Sitting, BP Cuff Size: Regular Adult) Pulse 76 Temp 36.7 C (98.1 F) Resp 18 Ht 171 cm (5' 7.32 ) Wt 68 kg (150 lb) BMI 23.27 kg/m General Appearance: Well appearing, alert, in no acute distress, well-hydrated, well nourished.. Skin: Skin color, texture, turgor normal, no suspicious rashes or lesions. Head: Normocephalic, no masses, lesions, tenderness or abnormalities. Eyes: Anicteric sclera. Pupils are equally round and reactive to light. Extraocular movements are intact. . Ears: External ears normal, canals clear. Nose/Sinuses: Not examined, - mask. Oropharynx: Not examined, - mask. Neck: Supple, no adenopathy; thyroid symmetric, normal size, no bruits. Lungs: Lungs clear to auscultation. No wheezing, rhonchi, rales.. Heart: RRR without murmur, gallop, or rubs. No ectopy. Abdomen: Normal abdominal exam, Abdomen soft, non-tender. Bowel sounds normal. No masses, organomegaly. Extremities: No deformities, edema, skin discoloration, clubbing or cyanosis. Good capillary refill. . Peripheral Pulses: Normal. Neurologic: Gait normal. Reflexes normal and symmetric. Sensation grossly intact.. Genitalia: Penis normal. No urethral discharge. Scrotum normal to palpation. No hernia.. Rectal: deferred to urology. Health Maintenance List SHINGRIX VACCINE(1 of 2) Never done BP CONTROLLED (<130/80) due on 05/24/2021 COVID-19 VACCINE(3 - Booster for Moderna series) due on 07/27/2021 PNEUMOCOCCAL(1 - PCV) due on 04/05/2027 INFLUENZA(Season Ended) due on 07/06/2022 ANNUAL PCP TEAM CHRONIC DISEASE VISIT due on 11/10/2022 DTAP,TDAP,TD(3 - Td or Tdap) due on 11/14/2022 DEPRESSION SCREENING due on 04/18/2023 DIABETES SCREEN due on 04/11/2025 COLORECTAL CANCER SCREENING due on 04/19/2025 LIPID SCREEN due on 04/11/2027 PROSTATE CANCER SCREENING DISCUSSION due on 04/11/2027 HEPATITIS C SCREENING Discontinued HIV SCREENING Discontinued Data reviewed Component Latest Ref Rng & Units 04/11/2022 Protein, Total 6.3 - 8.0 g/dL 6.9 Albumin 3.9 - 4.9 g/dL 4.5 Calcium 8.5 - 10.2 mg/dL 9.5 Bilirubin, Total 0.2 - 1.3 mg/dL 0.9 Alkaline Phosphatase 38 - 113 U/L 74 AST 14 - 40 U/L 21 ALT 10 - 54 U/L 26 Glucose 74 - 99 mg/dL 102 (H) BUN 9 - 24 mg/dL 14 Creatinine 0.73 - 1.22 mg/dL 0.88 Sodium 136 - 144 mmol/L 136 Potassium 3.7 - 5.1 mmol/L 4.2 Chloride 97 - 105 mmol/L 100 CO2 22 - 30 mmol/L 23 Anion Gap 9 - 18 mmol/L 13 eGFR >=60 mL/min/1.73m 98 Color Yellow Yellow Clarity Clear Clear Glucose, Urine Negative Negative Bilirubin, Urine Negative Negative Ketones, Urine Negative Negative Specific [place], Ur 1.005 - 1.030 1.020 Hemoglobin/Blood,Ur Negative Negative pH, Urine 5.0 - 8.0 5.0 Protein, Urine Negative Negative Urobilinogen Negative Negative Nitrites Negative Negative Leukest Negative Negative WBC, Urine 0-5 /HPF 0-5 /HPF RBC, Urine 0-3 /HPF 0-3 /HPF Total Cholesterol, Nonfasting <200 mg/dL 187 Triglycerides, Nonfasting <150 mg/dL 280 (H) HDL Cholesterol, Nonfasting >39 mg/dL 37 (L) LDL Cholesterol, Nonfasting <100 mg/dL 94 Non HDL Cholesterol, Nonfasting <130 mg/dL 150 (H) VLDL Cholesterol, Nonfasting <30 mg/dL 56 (H) Total Chol/HDL Ratio, Nonfasting <5.10 mg/dL 5.05 LDL/HDL Ratio, Nonfasting <2.54 mg/dL 2.54 (H) Hemoglobin A1C 4.3 - 5.6 % 5.4 Estimated Average Glucose mg/dL 108 PSA <2.60 ng/mL 4.88 (H) PSA, Percent Free % 7 ASSESSMENT/PLAN: 1. Well adult exam - ICD9: V70.0, ICD10: Z00.00 (primary diagnosis) - Counseled on healthy diet and regular exercise - Follow up for annual exam in one year 2. Essential hypertension, benign - ICD9: 401.1, ICD10: I10 - good control - Continue current medication(s) - Recommended regular aerobic exercise. - Recommend home blood pressure monitoring, to bring results in on next visit - Goal of BP <130/80 3. Mixed hyperlipidemia - ICD9: 272.2, ICD10: E78.2 - suboptimal control. Trigs still elevated - Encouraged following a low carbohydrate, healthy oil intake diet. - Continue current therapy. - LIPID PANEL, NONFASTING 4. Elevated fasting blood sugar - ICD9: 790.21, ICD10: R73.01 improved - HGB A1C 5. GERD without esophagitis - ICD9: 530.81, ICD10: K21.9 - stable 6. Smoker - ICD9: 305.1, ICD10: F17.200 - Cessation encouraged. - Physiologic and physical aspects of tobacco addiction as well as strategies for quitting were discussed. - Counseling was given focusing on the harmful effects of this addiction especially given the patient's medical condition(s) which will be worsened because of the chemicals in tobacco. - Prescription for bupropion (Wellbutrin) given Paramjit Carlin PA-C documented [facility] Miscellaneous Notes Patient has been identified by name and date of : Yes Patient phones for refill(s): Pending Prescriptions Disp Refills HYOSCYAMINE ER 0.375 MG TABLET,EXTENDED RELEASE,12 HR 60 tablet 11 Sig: Take 1 tablet by mouth twice daily. REBEL: No Date of last office visit in primary care: [place] 11/10/2021 Appointment scheduled for 04/18/2022 Last 2 Encounter Wt Readings: Date: Wt: 11/10/2021 72.1 kg (159 lb) 04/05/2021 73.5 kg (162 lb) Please advise. Thank you. MARIA GUADALUPE Cohen documented in this encounter [facility] 04-04-2022 Miscellaneous Notes Patient phones requesting refills as follows: Pending Prescriptions Disp Refills LOSARTAN 100 MG TABLET 60 tablet 5 Sig: Take 1 tablet by mouth twice daily. REBEL: No [facility] 11/10/21 NOV 04/18/22 Please review and advise. Inés Cabrera LPN documented [facility] documented as of this encounter (statuses as of 04/04/2022) [facility] of Past illness Narrative* Problem Noted Date Resolved Date Atypical nevi 05/20/2019 06/12/2019 documented as of this encounter (statuses as of 04/04/2022) [facility] Narrative* Problem Noted Date Resolved Date Atypical nevi 05/20/2019 06/12/2019 documented as of this encounter (statuses as of 04/13/2022) [facility] Narrative* Problem Noted Date Resolved Date Atypical nevi 05/20/2019 06/12/2019 documented as of this encounter (statuses as of 04/18/2022) [facility] Narrative* Problem Noted Date Resolved Date Atypical nevi 05/20/2019 06/12/2019 documented as of this encounter (statuses as of 09/07/2022) [address] History of Past illness Narrative* Problem Noted Date Resolved Date Atypical nevi 05/20/2019 06/12/2019 documented as of this encounter (statuses as of 10/04/2022) [address] History of Past illness Narrative* Problem Noted Date Resolved Date Atypical nevi 05/20/2019 06/12/2019 documented as of this encounter (statuses as of 10/05/2022) [address] History of Past illness Narrative* Problem Noted Date Resolved Date Atypical nevi 05/20/2019 06/12/2019 documented as of this encounter (statuses as of 10/23/2022) [address]16-2019 History of Past illness Narrative* Problem Noted Date Resolved Date Atypical nevi 05/20/2019 06/12/2019 documented as of this encounter (statuses as of 01/20/2023) [address] History of Past illness Narrative* Problem Noted Date Resolved Date Atypical nevi 05/20/2019 06/12/2019 documented as of this encounter (statuses as of 04/09/2023) [address]2019 History of Past illness Narrative* Problem Noted Date Resolved Date Atypical nevi 05/20/2019 06/12/2019 documented as of this encounter (statuses as of 04/09/2023) [address]2019 History of Past illness Narrative* Problem Noted Date Resolved Date Atypical nevi 05/20/2019 06/12/2019 Hematuria 11/24/2016 04/27/2023 Overview: Repeat UA 01/2017 was normal. documented as of this encounter (statuses as of 04/28/2023) [address] History of Past illness Narrative* Problem Noted Date Diagnosed Date Resolved Date Atypical nevi 05/20/2019 06/12/2019 Hematuria 11/24/2016 04/27/2023 Overview: Repeat UA 01/2017 was normal. documented as of this encounter (statuses as of 07/03/2023) [address] History of Past illness Narrative* Problem Noted Date Diagnosed Date Resolved Date Atypical nevi 05/20/2019 06/12/2019 Hematuria 11/24/2016 04/27/2023 Overview: Repeat UA 01/2017 was normal. documented as of this encounter (statuses as of 08/11/2023) [facility]* Problem Noted Date Diagnosed Date Resolved Date Atypical nevi 05/20/2019 06/12/2019 Hematuria 11/24/2016 04/27/2023 Overview: Repeat UA 01/2017 was normal. documented as of this encounter (statuses as of 08/24/2023) [facility]* Problem Noted Date Diagnosed Date Resolved Date Atypical nevi 05/20/2019 06/12/2019 Hematuria 11/24/2016 04/27/2023 Overview: Repeat UA 01/2017 was normal. documented as of this encounter (statuses as of 10/08/2023) [facility] N[facility]* Problem Noted Date Diagnosed Date Resolved Date Atypical nevi 05/20/2019 06/12/2019 Hematuria 11/24/2016 04/27/2023 Overview: Repeat UA 01/2017 was normal. documented as of this encounter (statuses as of 10/18/2023) [facility] Irritable bowel syndrome with diarrhea Irritable bowel syndrome [facility] Well adult exam- Primary Routine general medical examination at a [facility] care facility Essential hypertension, benign Mixed hyperlipidemia Elevated fasting blood sugar Impaired fasting glucose GERD without esophagitis Esophageal reflux Smoker Tobacco use disorder [facility] Prostate cancer (HCC) Malignant neoplasm of prostate [facility] Diagnosis Irritable bowel syndrome with diarrhea Irritable bowel syndrome [facility] Diagnosis Essential hypertension, benign- Primary Mixed hyperlipidemia Elevated fasting blood sugar Impaired fasting glucose [facility] Diagnosis Irritable bowel syndrome with diarrhea Irritable bowel syndrome [facility] Diagnosis Well adult exam- Primary Routine general medical examination at a health care facility Essential hypertension, benign Mixed hyperlipidemia GERD without esophagitis Esophageal reflux Elevated fasting blood sugar Impaired fasting glucose Irritable bowel syndrome with diarrhea Irritable bowel syndrome Smoker Tobacco use disorder Prostate cancer (HCC) Malignant neoplasm of prostate Numbness of finger Disturbance of skin sensation Encounter for immunization Need for other specified prophylactic vaccination against single bacterial disease [facility] Right inguinal hernia- Primary Inguinal hernia without mention of obstruction or gangrene, unilateral or unspecified, (not specified as recurrent) documented [facility] Advance Directives No Advanced Directives Records FoundDocuments on File Type Date Recorded Patient Supervisor [employer] Expl anation Advance Directive(s) 04/19/2020 8:57 AM Advance Directive(s) 03/24/2020 11:08 AM Reason for Referral Specialty Diagnoses / Procedures Referred By Albert pandya Referred To Contact General Surgery Diagnoses Right inguinal hernia Procedures CONSULT TO GENERAL SURGERY OFFICE/OUTPATIENT [facility] 60-74 MINUTES Didi Zimmer MD [address] [place] [address] Referral ID Status Reason Start Date Expiration Date Visits Requested Visits Authorized [id number] Pending Review PCP Requested Referral 07/02/2023 07/01/2024 1 1 Summary Purpose Family History No Family History Records Found Additional Source Comments Source Comments (unrecognize d section and content) In the event this informatio n is protected by the Federal Confidentiality of Alcohol and Drug Abuse Patient Records regulations: The Federal rules restrict any use of the information to criminally investigate or prosecute any alcohol or drug abuse patient.[facility] event this information is protected by the Federal Confidentiality of Alcohol and Drug Abuse Patient Records regulations: The Federal rules restrict any use of the information to criminally investigate or prosecute any alcohol or drug abuse patient.[facility] the event this information is protected by the Federal Confidentiality of Alcohol and Drug Abuse Patient Records regulations: The Federal rules restrict any use of the information to criminally investigate or prosecute any alcohol or drug abuse patient.[facility] the event this information is protected by the Federal Confidentiality of Alcohol and Drug Abuse Patient Records regulations: The Federal rules restrict any use of the information to criminally investigate or prosecute any alcohol or drug abuse patient.[facility] the event this information is protected by the Federal Confidentiality of Alcohol and Drug Abuse Patient Records regulations: The Federal rules restrict any use of the information to criminally investigate or prosecute any alcohol or drug abuse patient.[facility] the event this information is protected by the Federal Confidentiality of Alcohol and Drug Abuse Patient Records regulations: The Federal rules restrict any use of the information to criminally investigate or prosecute any alcohol or drug abuse patient.[facility] the event this information is protected by the Federal Confidentiality of Alcohol and Drug Abuse Patient Records regulations: The Federal rules restrict any use of the information to criminally investigate or prosecute any alcohol or drug abuse patient.[facility] the event this information is protected by the Federal Confidentiality of Alcohol and Drug Abuse Patient Records regulations: The Federal rules restrict any use of the information to criminally investigate or prosecute any alcohol or drug abuse patient.[facility] the event this information is protected by the Federal Confidentiality of Alcohol and Drug Abuse Patient Records regulations: The Federal rules restrict any use of the information to criminally investigate or prosecute any alcohol or drug abuse patient.[facility] the event this information is protected by the Federal Confidentiality of Alcohol and Drug Abuse Patient Records regulations: The Federal rules restrict any use of the information to criminally investigate or prosecute any alcohol or drug abuse patient.[facility] the event this information is protected by the Federal Confidentiality of Alcohol and Drug Abuse Patient Records regulations: The Federal rules restrict any use of the information to criminally investigate or prosecute any alcohol or drug abuse patient.[facility] the event this information is protected by the Federal Confidentiality of Alcohol and Drug Abuse Patient Records regulations: The Federal rules restrict any use of the information to criminally investigate or prosecute any alcohol or drug abuse patient.[facility] the event this information is protected by the Federal Confidentiality of Alcohol and Drug Abuse Patient Records regulations: The Federal rules restrict any use of the information to criminally investigate or prosecute any alcohol or drug abuse patient.[facility] the event this information is protected by the Federal Confidentiality of Alcohol and Drug Abuse Patient Records regulations: The Federal rules restrict any use of the information to criminally investigate or prosecute any alcohol or drug abuse patient.[facility] the event this information is protected by the Federal Confidentiality of Alcohol and Drug Abuse Patient Records regulations: The Federal rules restrict any use of the information to criminally investigate or prosecute any alcohol or drug abuse patient.[facility] the event this information is protected by the Federal Confidentiality of Alcohol and Drug Abuse Patient Records regulations: The Federal rules restrict any use of the information to criminally investigate or prosecute any alcohol or drug abuse patient.[facility] the event this information is protected by the Federal Confidentiality of Alcohol and Drug Abuse Patient Records regulations: The Federal rules restrict any use of the information to criminally investigate or prosecute any alcohol or drug abuse patient.[facility] Reason for Visit (unrecogniz ed section and content) Reason Onset Date Comments Refill Request 04/11/2022 Reason Comments Physical Reason Comments outside OV records Reason Onset Date Comments Refill Request 10/04/2022 Reason Comments Results Reason Comments Consult Reason Onset Date Comments Refill Request 04/06/2023 Reason Comments Pain Reason Comments outside H+P Reason Comments Outside Surgical Consult Reason Onset Date Comments Refill Request 10/07/2023 Reason Comments Outside Ortho Care Teams (unrecognized sec tion and content) Casino Assistant Manager Relationship Specialty Start Date End Date Didi Zimmer MD [address] [place] [address] PCP - General Family Practice 11/24/16 Casino Assistant Manager Relationship Specialty Start Date End Date Didi Zimmer MD [address] [place] [id number] PCP - General Family Practice 11/24/16 Casino Assistant Manager Relationship Specialty Start Date End Date Didi Zimmer MD [facility] [place] [address] PCP - General Family Practice 11/24/16 Casino Assistant Manager Relationship Specialty Start Date End Date Didi Zimmer MD [facility] [place] [address] PCP - General Family Medicine 11/24/16 Casino Assistant Manager Relationship Specialty Start Date End Date Didi Zimmer MD [facility] [place] [address] PCP - General Family Medicine 11/24/16 Casino Assistant Manager Relationship Specialty Start Date End Date Didi Zimmer MD [facility] [place] [address] PCP - General Family Medicine 11/24/16 Casino Assistant Manager Relationship Specialty Start Date End Date Didi Zimmer MD [facility] [place] [address] PCP - General Family Medicine 11/24/16 Casino Assistant Manager Relationship Specialty Start Date End Date Didi Zimmer MD [address] [place], [place] [id number] PCP - General [facility] 11/24/16 Casino Assistant Manager Relationship Specialty Start Date End Date Didi Zimmer MD [address] [place], [place] [address] PCP - General [facility] 11/24/16 Casino Assistant Manager Relationship Specialty Start Date End Date Didi Zimmer MD [address] [place], [place] [id number] PCP - [facility] 11/24/16 Casino Assistant Manager Relationship Specialty Start Date End Date Didi Zimmer MD [address] [place], [place] [address] PCP - [facility] 11/24/16 Casino Assistant Manager Relationship Specialty Start Date End Date Didi Zimmer MD [address] [place], [place] [id number] PCP - [facility] 11/24/16 (unrecognized sect ion and content) No Status Records Found INFORMATION SOURCE (unrecogn ized section and content) FOR RECORDS PERTAINING TO PATIENTS WHO ARE OR HAVE BEEN ENROLLED IN A CHEMICAL DEPENDENCY/SUBSTANCEABUSE PROGRAM, SOME INFORMATION MAY BE OMITTED. This clinical summary was aggregated from multiple sources. Caution should be exercised in using it in the provision of clinical care. This summary normalizes information from multiple sources, and as a consequence, information in this document may materially change the coding, format and clinical context of patient data. In addition, data may be omitted in some cases. CLINICAL DECISIONS SHOULD BE BASED ON THE PRIMARY CLINICAL RECORDS. [facility]. provides no warranty or guarantee of the accuracy or completeness of information in this document.
[2023-12-04] MEDS: dexAMETHasone 10 MG/ML Vial 8 MG IV (06:10)
[2023-12-04] MEDS: Lactated Ringers 1,000 ML 15 ML IV (06:25)
[2023-12-04] MEDS: Acetaminophen 500 MG Tablet 1000 MG PO ×3 (06:25→21:18)
[2023-12-04] MEDS: Magnesium 1 GM over 15 mins IV (06:26)
--- NOTE | 2023-12-04 07:01 | NURSING ---
pt given decadron 8 mg at 0610, at 0614 pt started feeling dizzy, nauseated, and diaphoretic. pt bp/p taken. BP 50s/40s, P 35. pt placed in trendelenburg. anesthesia called. per Dr. Cool, 500 ML bolus LR given. Dr Up here now reviewing chart.
--- NOTE | 2023-12-04 07:26 | HP.PCM_ITS ---
History and Physical Date of Admission: 12/04/23 MR#: [id number] Acct: [id number] Name: TOM GELLER Rep #: [id number] : [id number] Provider: Dr. Oniel Tinajero MD Age/Sex: 63/M Location: [facility] [place]NA[place] Status: Signed Intake Vital Signs 10/16/2313:49 Height 5 ft 7 in Weight: 156 lb BMI 24.4 Intake Visit Reasons: cervical spine Accompanied by: Self Allergies hydrochlorothiazide Allergy (Verified 11/27/23 10:40) Rashlisinopril Adverse Reaction (Mild, Verified 11/27/23 10:40) Otherlosartan potassium [From Cozaar] Adverse Reaction (Mild, Verified 11/27/23 10:40) Other Medications hyoscyamine sulfate 0.375 mg capsule,extended release 12 hr 0.375 mg PO BID 08/16/22 [History Confirmed 11/27/23] losartan 100 mg tablet 100 mg PO BID 08/16/22 [History Confirmed 11/27/23] fukmttra-mc-scili 300 mcg-K 60 mcg-lycop 600 mcg-lutein 300 mcg tablet (Centrum Silver Men) 1 tab PO DAILY 07/25/23 [History Confirmed 11/27/23] PFSH Medical History Alcohol use Arthritis Cancer Heartburn History of echocardiogram History of IBS Hypertension Injury of head and neck Leg cramps Marijuana use Smoker Wears glasses Surgical History H/O prostatectomy History of right inguinal hernia repair (~08/2023) Hx of colonoscopy Hx of wisdom tooth extraction Family History Mother Breast cancer CVA (cerebral vascular accident) Social History Smoking Status: Current every day smoker tobacco type: cigarettes alcohol intake: never substance use type: does not use HPI cervical spine Details: This documentation accurately reflects the service provided and the decisions made by me, Dr. Oniel Tinajero MD 11/27/23 1034. Part of today?s visit was documented by Kailey NEAL, acting as scribe. TOM GELLER is a 63 year old M here today for preop, cervical spine, dos 12/04/23. Tom continues to have neck pain radiating to left upper extremity along with difficulties with dexterity and balance which are worsening with time. I have seen him previously last month with the following history. 10/16/23: TOM GELLER is a 63 year old M here today NEW patient for neck pain. He states that he has had neck pain for a couple of years but recently in August he noticed his pain worsened. He states that his neck is stiff along with stiffness in the left shoulder. He does have pain in both the shoulder and neck. He also has numbness in his pointer finger on his left hand. Denies any known injury/surgery. He states that when he lays down it makes his pain worse where he gets a burning that goes down his arm into his fingers. He takes Tylenol and Aleve for the pain. Denies using heat/ice. Denies injections. Tom has had neck pain going towards the left shoulder and forearm into the left hand index and middle finger for at least the last 2 years. This severely got aggravated after his hernia surgery in August. He also had severe aggravation of pain and burning numbness going towards the scapular region as well as into the left arm and hand during a dental appointment last month. He feels that these episodes are getting more frequent. He is left-hand dominant. Notices that his left arm and hand feels weaker than the other. He has some difficulty with gripping objects and dropping objects but denies any handwriting difficulties. He also feels that he has been stumbling especially in the morning time but denies any falls. He reports that the symptoms are worsening with time. Ortho Exam General General: Yes no acute distress Neurologic: Yes alert and Yes oriented x3 Spine SPINE TESTING CERVICAL THORACIC LUMBAR Musculoskeletal Strength 0=absent - 5=normal Details: Examination of the neck shows midline left paraspinal tenderness. Neck extension is limited. Neurologic evaluation of upper extremity shows 5 x 5 power in all muscle groups except left elbow flexion, wrist extension and tricep s which are grade 4. Sensations are symmetric. Andres's is positive on the left. Lower extremity also shows 5 of 5 strength. Left knee shows hyperreflexia. Romberg's is positive. Tandem gait shows imbalance. Coding Level of Care Code Off vis,est,level 3 Diagnoses Cervical myelopathy with cervical radiculopathy G95.9; M54.12 Assessment and Plan Assessment and Plan (1) Cervical myelopathy with cervical radiculopathy: Status: Acute Plan I again went over his x-rays and MRI in detail. He has reversal of cervical lordosis focus between C4-7 with disc degeneration and central and foraminal stenosis worse towards the left side. There is central stenosis significant enough to cause cord compression. There is no dynamic instability. No obvious cord signal changes seen. I explained to him that he has developed cervical myelopathy and also has radiculopathy radiculopathy for the last 2 years. I explained to him the natural history of both cervical myelopathy as well as that of radiculopathy. While radiculopathy may have waxing waning features and episodic symptoms, myelopathy typically has progressive pattern of a stepladder pattern. Even with mild myelopathy, surgical decompression is recommended in order to halt the progression of the myelopathy. Patient has significant and worsening left upper and lower extremity weakness, difficulties with dexterity and balance. Symptoms are getting worse with time. I recommended surgery in the form of C4-7 ACDF. All risk benefits and alternatives were discussed. The risks include but are not limited to infection, bleeding, dysphagia, dysphonia, injury to nerves and vessels, spinal cord injury, nerve root injury, weakness, paralysis, pseudoarthrosis, esophageal injury, hardware failure, need for further surgeries, adjacent segment degeneration, DVT, pulmonary embolism, pneumonia, atelectasis. Patient understands and agrees to proceed with surgery.
[2023-12-04 07:31] LABS: Bedside Glucose 151 mg/dL (74-106)
--- NOTE | 2023-12-04 08:00 | RAD_ITS ---
STUDY: X-RAY - CERVICAL SPINE REASON FOR EXAM: Male, 63 years old. ANTERIOR FUSION C4-7 TECHNIQUE: 10 intraoperative view(s) of the cervical spine were obtained. COMPARISON: None FINDINGS: Intraoperative images demonstrate surgical fusion of C4-C7 anteriorly. RAD/Cerv Spine 2 or 3 Views IMPRESSION: Surgical fusion of C4-C7. Electronically Signed: Richard Pena DO at 16:48 EST ,
[2023-12-04] MEDS: Cefazolin 2 GM in 0.9% Normal Saline (100mL Bag) 100 ML IV (08:20)
--- NOTE | 2023-12-04 10:44 | OP.PCM_ITS ---
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 Anesthesia: Gen. endotracheal Estimated blood loss: 20 mL Complications: None Instrumentation used: Medtronic [place] Elite plate, LASR corticocancellous block Indications: The patient is a pleasant 63-year-old gentleman who presented with neck pain, left worse than right upper extremity radiation, difficulty with dexterity and balance. MRI showed central and foraminal stenosis worse on the left side from C4-7 with disc degeneration. In order to halt the progression of myelopathy, the patient requested surgical treatment. All risks and benefits of the procedure were explained to the patient. The risks include but are not limited to infection, bleeding, injury to nerves and vessels, vertebral artery injury, spinal cord injury, paralysis, vocal cord paralysis, injury to esophagus, pseudoarthrosis, need for further procedures, adjacent segment degeneration. Procedure: The patient was identified in the preoperative suite using unique patient identifiers. Skin was marked consent was taken and all questions were answered. The patient was then brought back to the operative room and a timeout was performed. General endotracheal anesthesia was given. Intraoperative neuro monitoring leads were applied. The patient was carefully positioned supine on a regular OR table. A lateral view with a C-arm was done to identify the level and to define the incision. The anterior neck was then prepped and draped in the usual fashion. A final timeout was then performed. A transverse skin incision was taken to the left of midline. Subcutaneous tissue was then divided with Bovie. Platysma was identified and cut along the incision with scissors. The fascial interval between the sternocleidomastoid and the larynx was developed. Omohyoid was identified and retracted. The esophagus with the larynx was retracted medially to reach the prevertebral fascia. Marker x-ray was performed with bent spinal needle and disc space and levels were confirmed. Longus coli muscle was elevated on both sides at and above and below C4-7 discs. Self-retaining retractors were then placed. A long handle knife was then used to perform annulotomy at C4-5. Disc fragments were removed with the pituitary. [place] pins were placed in C4 and C5 for disc distraction. Curettes and bur was utilized to remove cartilage from the endplates. Discectomy was performed laterally up to the uncovertebral joints. Posterior osteophytes were thinned down with the bur and adequate decompression in the central and foraminal areas were performed and PLL was thinned out. Once the disc space was prepared, trials of various sizes were utilized. Thorough irrigation was given. 6 mm LASR cortical cancellous allograft bone large footprint was then fashioned in such a way that concavities were burred out inferiorly and superiorly and half cc of DBX (demineralized bone matrix) was squeezed into the cancellous portion. The graft was then inserted into the C4-5 disc space. The retractors were then repositioned and the procedure was repeated for C5-6 and C6-7 discs with complete discectomy. Graft sizes were 6 mm at with large footprint at both C5-6 and C6-7. The grafts were found to be in good apposition with good pullout strength. A 57 mm Medtronic [place] Elite plate was then fixed to C4-7 with 16 mm screws. A lateral x-ray was then taken to check the length of the screws. Both AP and lateral x-rays showed good positioning of plate and screws. The locking mechanism over the screw heads was then turned. Thorough irrigation was again given. Hemostasis was achieved. A Katiuska drain was then inserted. Closure was done with 3-0 Vicryl for the platysma and subcutaneous tissue layers and 4-0 Monocryl for the skin. Closure was done around the drain. Steri-Strips were applied and dressing was done with 4 x 4 gauze and Tegaderm. A cervical collar was then applied. The patient was then woken up from anesthesia extubated and taken to PACU in stable condition. From here, the patient will be transitioned to the floor. Intraoperative neuro monitoring was performed throughout this procedure. Motor evoked potentials were run periodically. All potentials remained at baseline throughout the procedure. I was present for the entire surgery and performed the surgery myself. Drains: Katiuska Admit VTE Documentation VTE Mechan Device Prophylaxis: SCD's Procedures Musculoskeletal 20xxx-29xxx: Other Procedure See Report
[2023-12-04] MEDS: Lactated Ringers 1,000 ML 100 ML IV (12:56)
[2023-12-04] MEDS: dexAMETHasone 4 MG/ML Vial IV (12:58)
[2023-12-04] MEDS: Cefazolin 1 GM/50 ML BAG IV ×2 (14:44→21:22)
[2023-12-04] MEDS: Methocarbamol 500 MG Tablet 1000 MG PO (14:44)
[2023-12-05 02:48] VITALS: BP 157/79; PULSE 83; RESP 16; TEMP 36.7; O2SAT 96
[2023-12-05] MEDS: dexAMETHasone 4 MG/ML Vial 2 MG IV ×2 (03:00→09:16)
[2023-12-05] MEDS: 0.9% Saline Lock 10 ML Syringe IV (03:00)
[2023-12-05] MEDS: Acetaminophen 500 MG Tablet 1000 MG PO ×2 (05:50→13:45)
[2023-12-05 06:10] VITALS: BP 159/78; PULSE 83; RESP 16; TEMP 36.4; O2SAT 97
[2023-12-05 07:06] LABS: Absolute Lymphocyte Count 0.86 X10^3/uL (0.83-4.51); Absolute Neutrophil Count 9.8 X10^3/uL (2.0-7.7); Basophil# 0.01 X10^3/uL; Basophil% 0.1 % (0-1); Hematocrit 40.3 % (40-54); Hemoglobin 13.7 g/dL (13.0-16.5); Lymphocyte # 0.86 X10^3/ul (0.83-4.51); Lymphocyte % 7.6 % (19-41); Mean Corpuscular Hgb 31.5 pg (27.0-32.0); Mean Corpuscular Volume 92.6 fL (80-94); Mean Platelet Vol. 8.8 fl (6.2-12.0); Monocyte# 0.69 X10^3/uL; Monocyte% 6.1 % (0-10); NRBC Flagged by Analyzer 0 % (0-5); Neutrophil # 9.75 X10^3/uL (2.7-7.7); Neutrophil % 85.8 % (47-70); Platelet Count 296 K/mm3 (150-450); RBC Distribution Width CV 12.6 % (11.6-14.6); RBC Distribution Width SD 42.8 fl (35.1-43.9); Red Blood Count 4.35 M/mm3 (4.6-6.2); White Blood Count 11.4 K/mm3 (4.4-11.0)
[2023-12-05 07:24] LABS: Anion Gap 5 (5-15); BUN 10 mg/dL (7-18); BUN/Creat Ratio 12.8 RATIO (10-20); Calcium,Total 9.3 mg/dL (8.5-10.1); Chloride 111 mmol/L (98-107); Creatinine, Serum 0.78 mg/dL (0.70-1.30); EST Glomerular Filtration Rate 107 mL/min (>60); Est Glom Filt Rate - Afr Amer 129 mL/min (>60); Estimated Creatinine Clearance 90.63 ml/min; Glucose 134 mg/dL (74-106); Potassium 4.2 mmol/L (3.5-5.1); Sodium Level 140 mmol/L (136-145)
[2023-12-05 09:05] VITALS: BP 151/81; PULSE 74; RESP 18; TEMP 37; O2SAT 96
[2023-12-05] MEDS: Ensure Surgery 237 ML LIQUID PO (09:16)
[2023-12-05] MEDS: Meloxicam 15 MG Tablet PO (09:24)
--- NOTE | 2023-12-05 09:45 | CASEMGMT ---
MANJIT DUMONT Assessment Face to Face with patient for initial transition planning/care coordination assessment. MANJIT DUMONT introduced self and role at [facility], pt voices understanding. Pt is A&Ox4 and is sitting up comfortably in bed and is calm. Care providers, pharmacy, and demographics verified. Admitting dx: ERAS, Anterior Cervical Fusion C4-7 LACE Strata: 1 PCP: [facility] Specialists: Denies Preferred Pharmacy: [facility] Insurance: [employer] [facility] Prescription Benefit: Yes LNOK: Arabella Correa (W) Living Arrangements: Pt lives with his in a 2 story home with a BM with handrails with 3 steps to enter the home with handrails and no issues using the steps. ADLs/IADLs: Ind Transportation: Pt normally drives and pt drives. DME: Denies all DME use HHC/SNF:Denies Pt?s goal: Home with Plan: Pt plan is to DC home via his and f/u with Dr. Tinajero on 12/14. Pt states that Dr. Tinajero will give the pt a prescription for outpt therapy through [facility] at that time. Pt denies further needs. Vannessa Jackson RN, CM
--- NOTE | 2023-12-05 09:48 | PN.ORTHO_ITS ---
Subjective Subjective Postop day 1 status post C4-7 ACDF. Saw patient walking the hallway. Once back in the room, patient states that his pain was in good control. Could not sleep much but has been walking on the hallway all night. Denies any significant dysphagia. Preoperative radicular symptoms have resolved. Objective Data Objective Data Vital Signs: Vital Signs Temp Pulse Resp BP Pulse Ox O2 Del Method O2 Flow Rate 98.6 F 74 18 151/81 H 96 Room Air 4 12/05/23 09:05 12/05/23 09:05 12/05/23 09:05 12/05/23 09:05 12/05/23 09:05 12/05/23 09:09 12/04/23 12:53 FiO2 35 12/04/23 11:15 Oxygen Flow Rate (L/min) 4 Oxygen Delivery Method Room Air Weight: 154 lb 5.177 oz Body Mass Index (BMI) 24.1 Intake & Output: Intake and Output for Last 24 Hours 12/03/23 12/04/23 12/05/23 23:59 23:59 23:59 Intake Total 3083.67 / 3083.67 1100 / 1100 Balance 3083.67 / 3083.67 1100 / 1100 Lab / Micro Data 12/05/23 06:20 12/05/23 06:20 Labs: Laboratory Results - last 24 hr 12/05/23 06:20: WBC 11.4 H, RBC 4.35 L, Hgb 13.7, Hct 40.3, MCV 92.6, MCH 31.5, MCHC 34.0, RDW Std Deviation 42.8, RDW Coeff of Geovany 12.6, Plt Count 296, MPV 8.8, Immature Gran % (Auto) 0.400, Neut % (Auto) 85.8 H, Lymph % (Auto) 7.6 L, Schleicher % (Auto) 6.1, Eos % (Auto) 0.0, Baso % (Auto) 0.1, Absolute Neuts (auto) 9.8 H, Absolute Lymphs (auto) 0.86, Nucleated RBC % 0, Sodium 140, Potassium 4.2, Chloride 111 H, Carbon Dioxide 24.0, Anion Gap 5, BUN 10, Creatinine 0.78, Estim Creat Clear Calc 90.63, Est GFR (MDRD) Af Amer 129, Est GFR (MDRD) Non-Af 107, BUN/Creatinine Ratio 12.8, Glucose 134 H, Calcium 9.3 Micro: Microbiology 11/20/23 10:50 Swab (Method) Nasal Screen MRSA/MSSA - Final Radiography Diagnostic Testing: Radiology Impression Cervical Spine X-Ray 12/04/23 08:00 IMPRESSION: Surgical fusion of C4-C7. Electronically Signed: Richard Pena DO at 16:48 EST Reading Location ID and State: [facility] / [place] Tel [phone], Service support , Physical Exam Narrative Dressings?Katiuska drain was removed. New dressing was applied. Neurologic evaluation shows 5 x 5 power normal shows normal sensations. Andres's negative. Assessment & Plan Assessment/Plan (1) S/P cervical spinal fusion: PLAN: Plan Pain is in good control. Says that he did not take any opioids for pain. Drain has been removed. We will obtain upright x-rays today. Discharge today after x-rays. Patient was in agreement.
--- NOTE | 2023-12-05 10:45 | RAD_ITS ---
STUDY: X-RAY - CERVICAL SPINE REASON FOR EXAM: Male, 63 years old. s/p ACDF -- pls do Upright AP, Lat TECHNIQUE: 2 view(s) of the cervical spine were obtained. COMPARISON: Comparison is made with prior study dated December 04, 2023. FINDINGS: Normal anterior atlantoaxial articulation. Normal odontoid process. There is straightening of the normal cervical lordosis. The patient is status post anterior fusion and prosthetic disc placement at the C4-C5, C5-C6 and C6-C7 levels. Normal disc space heights. Normal visualized intervertebral neuroforamina. The soft tissue structures are unremarkable. RAD/Cerv Spine 2 or 3 Views IMPRESSION: Loss of the normal cervical lordosis. Status post anterior fusion with prosthetic disc placement at the C4-C5, C5-C6 and C6-7 levels. Electronically Signed: Nik Vega MD at 11:19 EST ,
[2023-12-05] MEDS: Losartan Potassium 100 MG Tablet PO (11:05)
[2023-12-05 12:25] VITALS: BP 160/78; PULSE 86; RESP 16; TEMP 37; O2SAT 95
--- NOTE | 2023-12-05 12:58 | PHA.DC_ITS ---
Pharmacy [facility] Service has performed discharge medication reconciliation and counseling for this patient. 1. ACETAMINOPHEN 500MG PO Q6 X 7 DAYS 2. MELOXICAM 15MG PO DAILY 3. METHOCARBAMOL 500MG PO TID PRN MUSCLE SPASMS/PAIN 4. OXYCODONE 2.5-5MG PO Q6H PRN PAIN 5. SENNA/DOCUSATE 2T PO BID PRN CONSTIPATION The patient's discharge medication list was reviewed for discrepancies and discrepancies were resolved. The patient was counseled on the following discharge medications and changes in medications for homegoing were reviewed. The Reason for Use, instructions for use, and potential side effects were reviewed for all new medications. The patient's questions regarding all of their medications were answered. Medications at Discharge Home Medications hyoscyamine sulfate 0.375 mg capsule,extended release 12 hr 0.375 mg PO BID 08/16/22 losartan 100 mg tablet 100 mg PO BID 08/16/22 kzwjatiq-xt-ajyen 300 mcg-K 60 mcg-lycop 600 mcg-lutein 300 mcg tablet (Centrum Silver Men) 1 tab PO DAILY 07/25/23 acetaminophen 500 mg tablet 500 mg PO Q6H 7 days #28 tabs 12/05/23 meloxicam 15 mg tablet 15 mg PO DAILY 14 days #14 tabs 12/05/23 methocarbamol 500 mg tablet 500 mg PO TID PRN Muscle spasm/pain 7 days #21 tabs 12/05/23 oxycodone 5 mg tablet 2.5 - 5 mg (0.5 - 1 x 5 mg) PO Q6H PRN pain 7 days #28 tabs 12/05/23 sennosides 8.6 mg-docusate sodium 50 mg tablet (Stool Softener-Stimulant Laxative) 2 tab PO BID PRN constipation 7 days #28 tabs 12/05/23
== END 2023-12-05 13:50 | disposition home or self-care (01) ==
LOC: SDC 11:18 → MS3 11:18
PROVIDERS: Anesthesiology; Admitting Provider Orthopaedic Surgery Orthopaedic Surgery of the Spine; PCP Family Medicine; Referring Provider Orthopaedic Surgery Orthopaedic Surgery of the Spine; Visit Provider Orthopaedic Surgery Orthopaedic Surgery of the Spine
PROC: (CPT 22551; principal; 2023-12-04 07:00)
DX: M48.02 Spinal stenosis, cervical region (principal); I10 Essential (primary) hypertension; M50.121 Cervical disc disorder at C4-C5 level with radiculopathy; F17.210 Nicotine dependence, cigarettes, uncomplicated; Z79.899 Other long term (current) drug therapy
CPT/HCPCS: 22551; 22845; 22552; 20931; 00670; 36415; 72040; 76000; 80048; 82962; 83735; 85025; 86703; 86706; 86708; 86803; 86850; 86900; 86901; 87081; 93005; 94668; 96361; 96365; 96366; 96375; 96376; 97162; 97166; 97530; 99221; 99252; C1713; J7120; A4216; G0378; G0463; J2405; J3475

== ENCOUNTER 2024-02-14 12:00 | Outpatient (RCR) | payer OTHER, SELFPAY ==
--- NOTE | 2023-12-31 16:27 | HP.PTEVAL ---
Patient's Visit Information Visit Information Visit Information: TOM GELLER is a 63 year old M referred to Physical Therapy by Dr. Oniel Tinajero MD with a diagnosis of ARTHRODESIS STATUS. Date of Evaluation: 12/31/23 Physical Therapist: Josue Velásquez, PT, Cert MDT, OCS Visit Plan Frequency: 2x /Week Duration: 4 Weeks Plan: S/P CERVICAL FUSION 12/04/23 WEAN CERVICAL COLLAR ASPEN START GENTLE ROM CERVICAL 2WEEKS FROM 12/14/23 5# LIFTING RESTRICTION PT INTERVENTIONS GENTLE CERVICAL ROM AND PROGRESS,POSTURAL EX'S ,STRENGTHENING BUE ,CERVICAL ISOMETRICS AND POSTURE TRAINING Subjective Subjective: This 63 y/o male present to physical therapy with s/p C4-7 anterior cervical discectomy and fusion with plate instrumentation on 12/04/[address] Tinajero at [facility] . Patient seen DR Tinajero 12/14/23 okay to start gentle ROM from 12/14 and wean from aspen collar and 5#lifting restriction. Patient had x-rays looked good. Patient had pain for 2 years prior to surgery. Patient had MRI showed stenosis canal. Patient tried prior PT . Patient had pain in arms and balance with weakness prior to surgery. Currently ,patient doing well no pain just numbness in fingers. Patient denies MARIE /nausea/tinnitus/dizziness. Patient condition affects sleeping .Patient sleeps in recliner . Patient has generalized stiffness. Patient denies weakness or balance or dysphagia problems. Patient condition affects QOL and function . Patient goals to RTW and prior level of function. 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 Goal Time Frame: 4-6 Weeks Goal 3:: Patient rajiv improve neck oswestry score by 5 points to improve QOL and function Goal Time Frame: 4-6 Weeks Goal 4:: Patient to demonstrate 75% with improved function and RTW. Goal Time Frame: 4-6 Weeks Goal 5:: Patient to RTW without limitations Goal Time Frame: 4-6 Weeks Rehabilitation Potential Physical Therapy Diagnosis: This patient underwent s/p cervical fusion C4-7 on 12/04/23 at [facility] with current deficits with decrease ROM cervical ,weakness and RTW/ADLs thus benefit from skilled PT Rehabilitation Potential: Good Anticipated Interventions Patient/Client Instruction: Educate patient on: Condition and Plan of Care For the Purpose of:: To decrease pain, To increase ROM, To improve muscle performance and motor function, To improve ability to perform ADL's, To increase tolerance to activity/condition/position, To improve performance and independence with ADL's, To improve ability of physical actions for home/community/work/leisure, To improve health of tissue, To decrease soft tissue restriction, To increase flexibility/ROM and To improve tolerance to ADL's Therapeutic Exercise to Include: Strength training, Postural training, Flexibilty training and Active ROM Comment: BUE For the Purpose of:: To increase ROM, To improve muscle performance and motor function, To improve ability to perform ADL's, To increase tolerance to activity/condition/position, To improve ability of physical actions for home/community/work/leisure, To improve health of tissue, To decrease soft tissue restriction, To increase flexibility/ROM and To reduce risk of recurrence Text: Thank you for the opportunity to evaluate your patient. For Medicare and Medicare HMO plans, please review the plan of care and approve it. It will need to be FAXED BACK to us at [phone] for Medicare purposes. For Medicare only, by signing this I certify the plan of care. Please let me know if there are questions or concerns regarding this plan of care. Physician Signature: Date:
--- NOTE | 2024-01-30 14:21 | HP.PTREVAL ---
Re-Evaluation Intro: Dr. Oniel Tinajero MD, It has been my pleasure to treat TOM GELLER over the last 10 visits for ARTHRODESIS STATUS. Please see the progress note below for an update on the physical therapy plan of care! 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 Goal Time Frame: 4-6 Weeks Goal Progress: Progressing Goal 3:: Patient rajiv improve neck oswestry score by 5 points to improve QOL and function Goal Time Frame: 4-6 Weeks Goal Progress: Progressing Goal 4:: Patient to demonstrate 75% with improved function and RTW. Goal Time Frame: 4-6 Weeks Goal Progress: Progressing Goal 5:: Patient to RTW without limitations Goal Time Frame: 4-6 Weeks Goal Progress: Progressing Anticipated Interventions Anticipated Interventions Patient/Client Instruction: Educate patient on: Condition and Plan of Care For the Purpose of:: To decrease pain, To increase ROM, To improve muscle performance and motor function, To improve ability to perform ADL's, To increase tolerance to activity/condition/position, To improve performance and independence with ADL's, To improve ability of physical actions for home/community/work/leisure, To improve health of tissue, To decrease soft tissue restriction, To increase flexibility/ROM and To improve tolerance to ADL's Therapeutic Exercise to Include: Strength training, Postural training, Flexibilty training and Active ROM Comment: BUE For the Purpose of:: To increase ROM, To improve muscle performance and motor function, To improve ability to perform ADL's, To increase tolerance to activity/condition/position, To improve ability of physical actions for home/community/work/leisure, To improve health of tissue, To decrease soft tissue restriction, To increase flexibility/ROM and To reduce risk of recurrence Re-Evaluation Ending Re-evaluation ending: Please do not hesitate to contact me at [phone] by phone or if you have questions or concerns regarding this new plan of care! Sincerely, Josue Velásquez, PT, Cert MDT, OCS
--- NOTE | 2024-02-14 12:32 | HP.PTDCSUM_ITS ---
Discharge Summary D/C summary: It has been my pleasure to treat TOM GELLER referred by Dr. Oniel Tinajero MD, with the diagnosis of ARTHRODESIS STATUS for a total of 13 visit(s). Discharge Date: 02/14/24 Please see the following information for a summary of their discharge status. 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 Goal Progress: Goal Met Goal 3:: Patient rajiv improve neck oswestry score by 5 points to improve QOL and function Goal Progress: Goal Met Goal 4:: Patient to demonstrate 75% with improved function and RTW. Goal Progress: Goal Met Goal 5:: Patient to RTW without limitations Goal Progress: Goal Met Plan Plan: D/C TO HEP D/C Information Discharge Comments: HEP d/c sentence: If there are questions or concerns regarding this patient's physical therapy, please feel free to call me at [phone]. Thank you for the referral of this patient. Sincerely, Josue Velásquze, PT, Cert MDT, OCS Balance/Gait/Functional tests Balance/Special Test Scores Oswestry Neck Score: 5 Improvement % Improvement: 75
== END 2024-02-14 19:00 | disposition home or self-care (01) ==
LOC: PT 12:00
PROVIDERS: PCP Family Medicine; Referring Provider Orthopaedic Surgery Orthopaedic Surgery of the Spine; Visit Provider Orthopaedic Surgery Orthopaedic Surgery of the Spine
DX: Z98.1 Arthrodesis status (principal)
CPT/HCPCS: 97110; 97162; 97530